=== PATIENT | female | born 1975 | race Caucasian/White ===

== ENCOUNTER 2021-12-18 11:34 | Observation (INO) | payer MEDICAID, SELFPAY ==
[2021-12-18] VITALS (8 sets, daily range): BP systolic 91–178; BP diastolic 53–95; PULSE 60–83; RESP 15–22; TEMP 36.2–36.7; O2SAT 92–100; BMI 30.7
--- NOTE | 2021-12-18 11:53 | XR_ITS ---
WS: [id number] Exam: XR chest 1V portable [id number] Date/Time of Exam: 12/18/2021 12:31 PM Reason For Exam: SOB No priors. Findings: The lungs are clear and fully expanded. Costophrenic angles are sharp. No infiltrates. Bronchovascula r relief appears normal. Cardiac silhouette is unremarkable. Bony elements are intact. XR/XR chest 1V portable [id number] IMPRESSION: Unremarkable chest radiograph.
[2021-12-18 12:46] LABS: Basophils # 0.1 10^3/uL (0.0-0.1); Basophils % 0.5 %; Eosinophils # 0.1 10^3/uL (0.0-0.8); Eosinophils % 1.3 %; Hematocrit 43.3 % (37.0-47.0); Hemoglobin 15.4 g/dL (11.5-15.3); Lymphocytes # 1.6 10^3/uL (0.8-4.8); Lymphocytes % 17.1 %; Mean Corpuscular HGB Conc 35.6 g/dL (30.0-36.0); Mean Corpuscular Hemoglobin 31.1 pg (28.0-34.0); Mean Corpuscular Volume 87.5 fl (81-99); Mean Platelet Volume 10.8 fL (7.4-10.4); Monocytes # 0.6 10^3/uL (0.2-0.9); Monocytes % 6.6 %; Neutrophils # 6.82 10^3/uL (1.8-7.7); Nucleated Red Blood Cells % 0 %; Platelet Count 214 10^3/cmm (130-400); Red Blood Count 4.95 10^6/uL (4.1-5.3); Red Cell Distribution Width 13.1 % (12.1-15.1); White Blood Count 9.2 10^3/uL (4.0-10.0)
--- NOTE | 2021-12-18 12:48 | CT_ITS ---
WS: [id number] CT ABDOMEN AND PELVIS NONCONTRAST HISTORY: diffuse ab pain, N/V TECHNIQUE: Imaging performed through the abdomen and pelvis. Coronal and sagittal reformats are submi tted. All CT scans at [facility] use at least one of these dose optimization techniques: auto mated exposure control; mA and/or kV adjustment per patient size (includes targeted exams where dose is matched to clinical indication); or iterative reconstruction. DLP: 1480.34 mGy.cm COMPARISON: None available. Lower thorax: Lung bases are clear. Visualized heart is normal. No hiatal hernia. Liver: Normal size liver. No mass or bile duct dilatation. Gallbladder: Normal gallbladder. Pancreas: Normal size and attenuation. Normal pancreatic duct. No pancreatitis or mass. Spleen: Normal. Adrenal glands: Normal. No mass. Right kidney: Normal size kidney with no mass or hydronephrosis. Left kidney: Normal size kidney with no mass or hydronephrosis. Aorta: Very minimal atherosclerotic plaque within the aorta. No aneurysm. No free fluid, intraperitoneal air or significant lymphadenopathy. GI tract: Normal appendix. No GI tract obstruction. There are a few scattered noninflamed sigmoid div erticula. Abdominal wall: Negative. No hernia. Pelvis: Uterus is tipped to the RIGHT of midline and very dense. The endometrium is not evident. Ther e is a small amount of free fluid in the cul-de-sac which is physiologic in amount. Neither ovary is well visualized. Osseous structures: Unremarkable. CT/CT abdomen pelvis wo con [id number] IMPRESSION: 1. No acute abdominal or pelvic abnormality is identified. 2. No evidence for acute pancreatitis. 3. A few minimally scattered sigmoid diverticula without acute diverticulitis. 4. Normal appendix. 5. Dense lobulated uterus and a small amount of physiologic free fluid in the pelvis. Consider follow-up transvaginal pelvic ultrasound on a nonurgent basis to evaluate for possible fibroids and the endometrium due to the increased dens ity. Patients symptoms do not appear to be related to the SENIOR ASSISTANT MANAGER system.
--- NOTE | 2021-12-18 12:49 | W.ED.ABDPA2 ---
Documented by User: MYRA Baker 12/22/21 12:49 HPI - Abdominal Pain General: Chief Complaint: Abdominal Pain Stated Complaint: abdominal pain/vomiting/nausea Time Seen by Provider: 12/18/21 12:18 Source: patient Mode of arrival: ambulatory Limitations: no limitations History of Present Illness: Patient is a 46-year-old female presents to ED today with complaint of diffuse abdominal pain, nausea, vomiting. Patient states symptoms been present over the past 5 to 6 days. She states she has a longstanding history of similar symptoms related to chronic pancreatitis. She states she was seen at [place] [facility] a few days ago had blood work and CT imaging as well as an ultrasound performed of her gallbladder which was normal. Patient states she used to be a heavy drinker but has not had a drink in over 5 months. She states she has not had a bowel movement in several days but admittedly has not been able to keep much food down. Patient is not running fevers. Denies urinary complaints. MD elicited complaint: abdominal pain Pertinent past history: other (pancreatitis) Onset (ago): day(s) Pain Consistency: constant Location: Diffuse Severity: severe Quality: cramping and sharp Radiation: none Migration to: no migration Relieving factors: nothing Associated Symptoms: Reports constipation, nausea and vomiting; Denies chills, diarrhea, dysuria, fever(s), hematochezia, hematuria, hematemesis and melena Review of Systems Const: Denies: fever(s), chills, body aches, fatigue or malaise Card: Denies: chest pain Resp: Denies: dyspnea GI: Reports: abdominal pain, nausea, vomiting and constipation; Denies: hematemesis, diarrhea, hematochezia or melena : Denies: flank pain, dysuria or hematuria Musc: Denies: neck pain, back pain, extremity pain or joint pain Skin/Breast: Denies: rash Neuro: Denies: headache(s), numbness in extremities, weakness in extremities, sensory changes or dizziness [facility] ED PFSH: Medical History Marijuana use Mood disorder PUD (peptic ulcer disease) Smoking addiction Surgical History H/O tubal ligation Family History Grandfather Glaucoma Diabetes Social History Smoking and tobacco status: never smoked Alcohol intake: never Substance/Drug Use: never Lives independently: Yes Household members: spouse Marital status: Current occupational status: employed Current occupation: Self-employed Physical Exam Const: COMMON NORMALS: patient oriented x3, no limitations and alert GENERAL APPEARANCE: cooperative and in distress (appears uncomfortable secondary to pain/nausea) NUTRITIONAL APPEARANCE: overweight ORIENTATION/CONSCIOUSNESS: Yes awake, Yes oriented to person, Yes oriented to place and Yes oriented to time HENMT: COMMON NORMALS: normocephalic and atraumatic HEAD & SCALP: normal to inspection, normocephalic and atraumatic Eye: COMMON NORMALS: no scleral icterus GENERAL EYE: appearance normal, both eyes and all related structures Chest: COMMONS NORMALS: normal inspection of the chest and normal palpation of entire chest wall Resp: COMMON NORMALS: normal respiratory effort and clear to auscultation bilaterally AUSCULTATION: clear to auscultation bilaterally Cardio: COMMON NORMALS: regular rate and regular rhythm RATE: regular rate RHYTHM: regular rhythm GI: COMMON NORMALS: no masses INSPECTION: Yes normal to inspection AUSCULTATION: Yes Hypoactive bowel sounds present PALPATION: Yes Tenderness to palpation present (GI) (diffusely) and Yes Guarding due to palpation present (GI) : COMMON NORMALS: Yes no CVA tenderness BLADDER/KIDNEY EXAM: Yes no CVA tenderness Back/Pelvis: COMMON NORMALS: no CVA tenderness Extremity: COMMON NORMALS: normal to inspection Neuro: SONIA COMA SCALE: document GCS findings [place] coma scale eye opening: Spontaneous [place] coma scale verbal response: Orientated [place] coma scale motor response: Obey commands Sonia coma scale total score: 15 COMMON NORMALS: patient oriented x3, moves all extremities, no focal motor deficits and no sensory deficits noted SENSORIUM/ORIENTATION: Yes alert, Yes oriented to person, Yes oriented to place and Yes oriented to time Skin: COMMON NORMALS: no rashes or lesions noted GENERAL SKIN EXAM: no rashes or lesions noted Course ED course: Re-assessment shows patient still nauseous/in pain. Will order more pain meds/nausea meds and reassess yet again. Case discussed with AUGUSTINE Amin who is coming on shift as well as Dr. Dupont. They will reassess patient and plan for disposition. Vital Signs: Vital signs: Vital Signs Temperature 99.0 F 12/19/21 14:29 Pulse Rate 84 12/19/21 14:29 Respiratory Rate 18 12/19/21 14:29 Blood Pressure 144/83 12/19/21 14:29 Pulse Oximetry 95 12/19/21 14:29 MDM - Abdominal Pain Lab Data : 12/19/21 04:28 12/19/21 04:28 Labs/Radiology: Radiology Impressions Chest X-Ray 12/18/21 11:53 IMPRESSION: Unremarkable chest radiograph. Abdomen/Pelvis CT 12/18/21 12:48 IMPRESSION: 1. No acute abdominal or pelvic abnormality is identified. 2. No evidence for acute pancreatitis. 3. A few minimally scattered sigmoid diverticula without acute diverticulitis. 4. Normal appendix. 5. Dense lobulated uterus and a small amount of physiologic free fluid in the pelvis. Consider follow-up transvaginal pelvic ultrasound on a nonurgent basis to evaluate for possible fibroids and the endometrium due to the increased density. Patients symptoms do not appear to be related to the FIELD APPLICATIONS SPECIALIST system. Pelvic/Transvag US 12/18/21 15:12 IMPRESSION: 1. No intrauterine gestation. 2. Posterior myometrial fibroid measures 2.4 x 1.8 x 1.7 cm. Laboratory Results WBC 9.2 10^3/uL (4.0-10.0) 12/18/21 12:15 RBC 4.95 10^6/uL (4.1-5.3) 12/18/21 12:15 Hgb 15.4 g/dL (11.5-15.3) H 12/18/21 12:15 Hct 43.3 % (37.0-47.0) 12/18/21 12:15 MCV 87.5 fl (81-99) 12/18/21 12:15 MCH 31.1 pg (28.0-34.0) 12/18/21 12:15 MCHC 35.6 g/dL (30.0-36.0) 12/18/21 12:15 RDW 13.1 % (12.1-15.1) 12/18/21 12:15 Plt Count 214 10^3/cmm (130-400) 12/18/21 12:15 MPV 10.8 fL (7.4-10.4) H 12/18/21 12:15 Neut % (Auto) 74.0 % 12/18/21 12:15 Lymph % (Auto) 17.1 % 12/18/21 12:15 [place] % (Auto) 6.6 % 12/18/21 12:15 Eos % (Auto) 1.3 % 12/18/21 12:15 Baso % (Auto) 0.5 % 12/18/21 12:15 Neut # (Auto) 6.82 10^3/uL (1.8-7.7) 12/18/21 12:15 Lymph # (Auto) 1.6 10^3/uL (0.8-4.8) 12/18/21 12:15 [place] # (Auto) 0.6 10^3/uL (0.2-0.9) 12/18/21 12:15 Eos # (Auto) 0.1 10^3/uL (0.0-0.8) 12/18/21 12:15 Baso # (Auto) 0.1 10^3/uL (0.0-0.1) 12/18/21 12:15 Nucleated RBC % (auto) 0 % 12/18/21 12:15 Nucleated RBCs # 0.0 /100WBC 12/18/21 12:15 Sodium 142 mmol/L (136-145) 12/18/21 12:15 Potassium 3.1 mmol/L (3.5-5.1) L 12/18/21 12:15 Chloride 105 mmol/L (98-107) 12/18/21 12:15 Carbon Dioxide 19 mmol/L (22-29) L 12/18/21 12:15 Anion Gap 21.1 (5-19) H 12/18/21 12:15 BUN 9 mg/dL (6-20) 12/18/21 12:15 Creatinine 0.8 mg/dL (0.5-0.9) 12/18/21 12:15 GFR Calculation 76.9 mL/min (90-130) L 12/18/21 12:15 Glucose 132 mg/dL (65-115) H 12/18/21 12:15 Calculated Osmolality 295 mOsm/kg (285-295) 12/18/21 12:15 Calcium 9.4 mg/dL (8.5-10.5) 12/18/21 12:15 Magnesium 1.9 mg/dL (1.7-2.3) 12/18/21 12:15 Total Bilirubin 0.5 mg/dL (0.15-1.2) 12/18/21 12:15 AST 19 U/L (0-32) 12/18/21 12:15 ALT 16 U/L (0-33) 12/18/21 12:15 Alkaline Phosphatase 89 IU/L (35-105) 12/18/21 12:15 Total Protein 6.8 g/dL (6.6-8.7) 12/18/21 12:15 Albumin 4.6 g/dL (3.5-5.2) 12/18/21 12:15 Globulin 2.2 g/dL (1.3-4.6) 12/18/21 12:15 Lipase 33 U/L (13-60) 12/18/21 12:15 HCG, Qual Positive (Negative) H 12/18/21 12:15 Ser , Semi-Qnt 4.51 mIU/mL 12/18/21 12:15 Ser , Semi-Qnt 4.52 mIU/mL 12/18/21 12:15 Urine Color Yellow (Yellow) 12/18/21 14:03 Urine Appearance Clear (CLEAR) 12/18/21 14:03 Urine pH 8 (5-7) H 12/18/21 14:03 Ur Specific [place] 1.015 (1.005-1.030) 12/18/21 14:03 Urine Protein Neg (Negative) 12/18/21 14:03 Urine Glucose (UA) Norm (Normal) 12/18/21 14:03 Urine Ketones 1+ (Negative) H 12/18/21 14:03 Urine Blood Neg (Negative) 12/18/21 14:03 Urine Nitrate Negative (Negative) 12/18/21 14:03 Urine Bilirubin Neg (Negative) 12/18/21 14:03 Prot Sulfosalicylic Acd Negative (Negative) 12/18/21 14:03 Urine Urobilinogen Norm mg/dL (Negative) 12/18/21 14:03 Ur Leukocyte Esterase Negative (Negative) 12/18/21 14:03 Discharge Plan Discharge Patient Disposition: Admitted As Inpatient Admit Provider: Sav Collins Clinical Impression: Hyperemesis, Abdominal pain, Intractable vomiting Condition: Stable Discharge Diet: Advance as tolerated and Full LIquid Discharge Activity: Increase activity as tolerated Coding Level of Care Code ED [place] Tier for Chg Fwd Exam Comprehensive Documented by User: Ace Dupont MD 12/20/21 19:39 HPI - Abdominal Pain General: Chief Complaint: Abdominal Pain Stated Complaint: abdominal pain/vomiting/nausea Time Seen by Provider: 12/18/21 12:18 PFSH ED PFSH: Medical History Marijuana use Mood disorder PUD (peptic ulcer disease) Smoking addiction Surgical History H/O tubal ligation Family History Grandfather Glaucoma Diabetes Social History Smoking and tobacco status: never smoked Alcohol intake: never Substance/Drug Use: never Lives independently: Yes Household members: spouse Marital status: Current occupational status: employed Current occupation: Self-employed Physical Exam Neuro: SONIA COMA SCALE: document GCS findings S[place] coma scale total score: 15 Course Vital Signs: Vital signs: Vital Signs Temperature 99.0 F 12/19/21 14:29 Pulse Rate 84 12/19/21 14:29 Respiratory Rate 18 12/19/21 14:29 Blood Pressure 144/83 12/19/21 14:29 Pulse Oximetry 95 12/19/21 14:29 MDM - Abdominal Pain Medical Decision Making 46-year-old female with history of prior pancreatitis, alcohol dependence presenting to the emergency room for acute onset of vomiting abdominal pain. Physical exam, patient has mild tenderness diffusely in the abdomen voluntary guarding. White count of 9.2. Patient is hemoconcentrated 15.4. Potassium 3.1. CT abdomen pelvis negative for any acute findings. hCG appears to positive qualitatively however, quantitative hCG within normal limit. Ultrasound of the pelvis negative for any acute findings. Patient received multiple antiemetics and IVF with mild improvement in symptoms. Patient still cannot tolerate p.o. Disposition: admission Dr. Dupont - Patient evaluation, diagnosis, and management was performed independently by Rita Lynch. I did not personally see the patient nor staff the patient with patient's provider. I did review the patient's note today and I believe this note is consistent. Lab Data : 12/19/21 04:28 12/19/21 04:28 Labs/Radiology: Radiology Impressions Chest X-Ray 12/18/21 11:53 IMPRESSION: Unremarkable chest radiograph. Abdomen/Pelvis CT 12/18/21 12:48 IMPRESSION: 1. No acute abdominal or pelvic abnormality is identified. 2. No evidence for acute pancreatitis. 3. A few minimally scattered sigmoid diverticula without acute diverticulitis. 4. Normal appendix. 5. Dense lobulated uterus and a small amount of physiologic free fluid in the pelvis. Consider follow-up transvaginal pelvic ultrasound on a nonurgent basis to evaluate for possible fibroids and the endometrium due to the increased density. Patients symptoms do not appear to be related to the FIELD APPLICATIONS SPECIALIST system. Pelvic/Transvag US 12/18/21 15:12
[2021-12-18 13:12] LABS: HCG, Serum Qual Positive (Negative)
[2021-12-18 13:13] LABS: Alanine Aminotransferase 16 U/L (0-33); Albumin Level 4.6 g/dL (3.5-5.2); Alkaline Phosphatase 89 IU/L (35-105); Anion Gap 21.1 (5-19); Aspartate Amino Transferase 19 U/L (0-32); Blood Urea Nitrogen 9 mg/dL (6-20); Calcium 9.4 mg/dL (8.5-10.5); Carbon Dioxide 19 mmol/L (22-29); Chloride 105 mmol/L (98-107); Globulin 2.2 g/dL (1.3-4.6); Glomerular Filtration Rate 76.9 mL/min (90-130); Glucose 132 mg/dL (65-115); Lipase 33 U/L (13-60); Osmolality Calculated 295 mOsm/kg (285-295); Potassium 3.1 mmol/L (3.5-5.1); Sodium 142 mmol/L (136-145); Total Bilirubin 0.5 mg/dL (0.15-1.2); Total Protein 6.8 g/dL (6.6-8.7)
[2021-12-18] MEDS: ondansetron 2 mg/ML SDV 2 mL 4 MG IVP ×3 (13:28→21:07)
[2021-12-18] MEDS: sodium chloride 0.9% 1,000 ML 999 ML IV ×2 (13:28→15:57)
[2021-12-18 13:36] LABS: HCG Quantitative 4.52 mIU/mL
[2021-12-18] MEDS: morphine 4 mg/mL SDV 1 mL IVP (13:44)
--- NOTE | 2021-12-18 14:11 | PC.NURSE ---
Patient did not take oral potassium, states she will once she is not feeling sick.
[2021-12-18 14:19] LABS: Magnesium 1.9 mg/dL (1.7-2.3)
[2021-12-18 14:20] LABS: Add Urine Microscopic? NO; Charge for UA Resulting for Rev
[2021-12-18 14:23] LABS: Bilirubin Urine Neg (Negative); Blood Urine Neg (Negative); Glucose Urine UA Norm (Normal); Ketones Urine 1+ (Negative); Leukocyte Esterase Urine Negative (Negative); Nitrate Urine Negative (Negative); Protein Urine Neg (Negative); Specific Gravity, Urine 1.015 (1.005-1.030); Sulfosalicylic Acid Urine Negative (Negative); Urine Appearance Clear (CLEAR); Urine Color Yellow (Yellow); Urobilinogen Urine Norm (Negative); pH Urine 8 (5-7)
--- NOTE | 2021-12-18 15:12 | US_ITS ---
WS: [id number] TRANSABDOMINAL PELVIC AND TRANSVAGINAL PELVIC ULTRASOUND HISTORY: COMPARISON: None available. Uterus: 7.3 x 4.4 x 4.8 cm. Hypoechoic area of shadowing in the posterior myometrium measures 2.4 x 1 .8 x 1.7 cm. Endometrium: 0.8 cm. Normal endometrium. Slightly distorted by the fibroid. Right ovary: 1.5 cm x 1.3 cm x 1.0 cm. Small caliber and unremarkable. Normal vascularity. Left ovary: 1.5 cm x 1.8 cm x 1.0 cm. Small caliber and unremarkable. Normal vascularity. No free fluid. US/US pelvic with transvaginal IMPRESSION: 1. No intrauterine gestation. 2. Posterior myometrial fibroid measures 2.4 x 1.8 x 1.7 cm.
[2021-12-18] MEDS: HYDROmorphone 1 mg/mL INJ 1 mL 0.5 MG IVP (15:18)
[2021-12-18] MEDS: metoclopramide 5 mg/mL SDV 2 mL 10 MG IVP (15:18)
[2021-12-18 15:39] LABS: HCG Quantitative 4.51 mIU/mL
--- NOTE | 2021-12-18 16:36 | ECG_ITS ---
[facility] Test Date: 2021-12-18 Pat Name: Janiya Kaur Department: Room: Gender: Female Biology Specialist: : 1975 Requested By: Ace Dupont Order Number: [id number] Aponte MD: Cass Mackey M.D. Measurements Intervals [place] Rate: 77 P: RI: QRS: 81 QRSD: 109 T: 79 QT: 430 QTc: 489 Interpretive Statements Wandering atrial pacemaker INCOMPLETE RIGHT BUNDLE BRANCH BLOCK [90+ ms QRS DURATION, TERMINAL R IN V1/V2, 40+ ms S IN I/aVL/V4/V5/V6] ABNORMAL RHYTHM ECG No previous ECG available for comparison Electronically Signed On 12-19-2021 11:48:57 CDT by Cass Mackey M.D. [id number]
--- NOTE | 2021-12-18 17:49 | P.HP_ITS ---
Providers/Chief Complaint Primary Care Provider: Zurdo Hernandez MD Chief Complaint: abdominal pain/vomiting/nausea History of Present Illness Pleasant 46-year-old lady with history of mood disorder, PUD, past alcohol overuse, but has not had any alcohol in the last 5 months, smoking addiction, presented to the emergency department due to 5 to 6 days of recurrent episodes of vomiting, currently to the point that she is unable to tolerate food or drink. With vague abdominal discomfort, with some pain and tenderness in epigastric and central abdomen. In ER she is afebrile, without leukocytosis, or other signs of sepsis. With mild hypokalemia, potassium 3.1, unremarkable urinalysis, unremarkable liver parameters. Lipase normal. Of note positive qualitative hCG, with quantitative hCG 4.52, repeated 4.51, normal. No intrauterine on pelvic/transvaginal ultrasound. Chest x- ray unremarkable. CT abdomen pelvis without acute abdominal or pelvic abnormality, no evidence of acute pancreatitis. Few minimal scattered sigmoid diverticuli without acute diverticulitis. Normal appendix. Dense lobulated uterus and a small amount of physiologic free fluid in the pelvis. Consider follow-up transvaginal pelvic ultrasound on nonemergent basis to evaluate for possible fibroids and endometrium due to the increased density. Pelvic/transvaginal ultrasound without intrauterine gestation. Posterior myometrial fibroid measuring 2.4 x 1.8 x 1.7 cm. In ER she received Zofran, fluid boluses, morphine, potassium, Reglan, Dilaudid. Reports history of PUD for which she takes pantoprazole. Does report also taking Aleve. Smoking marijuana. Review of Systems Const: Denies: fever(s), chills, body aches or malaise Eyes: Denies: change in vision, eye discomfort or eye redness ENMT: Denies: throat pain, oral sores or ear or mastoid pain Card: Denies: chest pain, edema, pre-syncope or dyspnea on exertion Resp: Denies: dyspnea, productive cough, change in phlegm color or hemoptysis GI: Reports: abdominal pain, nausea and vomiting; Denies: diarrhea, constipation, hematochezia or melena : Denies: flank pain, urinary frequency or hematuria Musc: Denies: back pain, joint swelling or joint redness Skin/Breast: Denies: rash or new lesions Neuro: Denies: headache(s), numbness in extremities, weakness in extremities, dizziness, confusion or seizure-like activity Endo: Denies: polyuria or polydipsia Ronnie/Lymph: Denies: easy bleeding or tender lymph nodes All/Imm: Denies: urticaria or tongue swelling Medications/Allergies Home Medications Medication Instructions Recorded Confirmed Last Taken Type citalopram 40 mg tablet 40 mg PO DAILY 12/18/21 12/18/21 12/17/21 History pantoprazole 40 mg tablet,delayed 40 mg PO DAILY 12/18/21 12/18/21 12/17/21 History release Allergies Allergy/AdvReac Type Severity Reaction Status Date / Time Penicillins Allergy Unknown ALGY-Hives Verified 12/18/21 17:59 PFSH Acute PFSH: Medical History Marijuana use Mood disorder PUD (peptic ulcer disease) Smoking addiction Surgical History H/O tubal ligation Family History Grandfather Glaucoma Diabetes Social History Smoking and tobacco status: never smoked Alcohol intake: never Substance/Drug Use: never Lives independently: Yes Household members: spouse Marital status: Current occupational status: employed Current occupation: Self-employed Vitals/I&O/Wt Last Vital Signs Temp 97.1 F L 12/18/21 11:59 Pulse 76 12/18/21 15:19 Resp 16 12/18/21 15:19 BP 178/95 12/18/21 15:19 Pulse Ox 100 12/18/21 15:19 Weight last 48 hrs Weight 76.204 kg Physical Exam Narrative: Sister at bedside Const: COMMON NORMALS: alert GENERAL APPEARANCE: cooperative ORIENTATION/CONSCIOUSNESS: Yes awake HENMT: COMMON NORMALS: normocephalic, EAC's normal, Normal external nose present and moist oral mucous membranes HEAD & SCALP: normocephalic NOSE: Normal external nose present EXTERNAL AUDITORY CANAL: EAC's normal Neck/C-Spine: COMMON NORMALS: no meningeal signs Chest: CHEST: Yes Symmetrical chest wall rise Resp: COMMON NORMALS: clear to auscultation bilaterally AUSCULTATION: clear to auscultation bilaterally Cardio: COMMON NORMALS: regular rate, regular rhythm and No murmurs present (Cardio) RATE: regular rate RHYTHM: regular rhythm GI: COMMON NORMALS: Normal to inspection, nondistended, normoactive bowel sounds present and Soft to palpation PALPATION: Yes Soft to palpation and Yes Tenderness to palpation present (GI) Details: other (Epigastrium) Extremity: COMMON NORMALS: no pedal edema Neuro: COMMON NORMALS: moves all extremities SENSORIUM/ORIENTATION: Yes alert MENINGEAL SIGNS: Yes no meningeal signs Psych: COMMON NORMALS: mental status grossly normal Skin: COMMON NORMALS: no wounds RASHES: no rashes Data : 12/18/21 12:15 12/18/21 12:15 A&P Assessment and plan (1) Intractable vomiting: Intractable nausea and vomiting to the point she cannot tolerate food or drink by mouth. Possible gastritis, possible PUD. History of known PUD. Possible NSAID induced gastritis as she takes Aleve. Additional consideration could be cannabinoid hyper emesis syndrome, although perhaps less likely given she also has epigastric abdominal pain. Lipase is normal, no sign of pancreatitis on CT. Has not had any alcohol in 5 months. Zofran as needed. Discussed with her to discontinue NSAIDs. Please PPI to twice daily, currently IV.Sucralfate. Will need to discuss consideration of discontinuation of cannabis use, especially in case of persistent or recurrent symptoms. IV hydration with LR. Status: Acute (2) PUD (peptic ulcer disease): Continue PPI. Discontinue NSAIDs. History of alcohol overuse, but has since stopped and has not drank any in 5 months. Status: Acute (3) Marijuana use: Consider possibility of cannabinoid hyperemesis syndrome. Status: Acute (4) Hypokalemia: Received replacement. Recheck. Status: Acute (5) Elevated serum hCG in female, not : Unclear cause of qualitative hCG elevation. This was followed up with quantitative which was normal, at 4.51, as well as pelvic/transvaginal ultrasound which showed no intrauterine . Discussed with her perhaps cannot rule out , but appears very unlikely. She reports she had had history of testing positive by beta-hCG before in the past and did not have at that time. Discussed with her to follow-up with primary provider. Primary provider may consider referral to gynecology. Status: Acute (6) Smoking addiction: Encourage cessation. Nicotine replacement. Status: Acute Plan Mood disorder PD History of alcohol overuse: Stopped any alcohol use 5 months ago. Attestations 2 Medical Necessity Statement*: Place in observation due to intractable nausea and vomiting unable to tolerate food or drink. Coding Level of Care Code Acute Clerical Warehouse Worker for Chg Fwd Diagnoses PUD (peptic ulcer disease) K27.9 Marijuana use F12.90 Hypokalemia E87.6 Elevated serum hCG in female, not E34.9 Smoking addiction F17.200 Intractable vomiting R11.10
--- NOTE | 2021-12-18 18:25 | PC.NURSE ---
Patient reports that her pain is much better, patient is in bed, observed to be resting with eyes open, and looks more comfortable than earlier.
[2021-12-18] MEDS: pantoprazole 40 mg SDV IVP (21:07)
[2021-12-18] MEDS: nicotine 14 mg Patch 1 PATCH TRANSDERMA (21:07)
[2021-12-18] MEDS: lactated ringers 1,000 ML 75 ML IV (21:09)
[2021-12-19 04:00] VITALS: BP 94/54; PULSE 68; RESP 17; TEMP 36.7; O2SAT 91
[2021-12-19 04:58] LABS: Basophils % 0.5 %; Eosinophils # 0.2 10^3/uL (0.0-0.8); Eosinophils % 2.1 %; Hematocrit 34.6 % (37.0-47.0); Hemoglobin 11.4 g/dL (11.5-15.3); Lymphocytes # 2.8 10^3/uL (0.8-4.8); Mean Corpuscular HGB Conc 32.9 g/dL (30.0-36.0); Mean Corpuscular Hemoglobin 31.1 pg (28.0-34.0); Mean Corpuscular Volume 94.3 fl (81-99); Mean Platelet Volume 10.8 fL (7.4-10.4); Monocytes # 0.5 10^3/uL (0.2-0.9); Monocytes % 6.6 %; Neutrophils # 4.41 10^3/uL (1.8-7.7); Neutrophils % 55.3 %; Nucleated Red Blood Cells % 0 %; Platelet Count 146 10^3/cmm (130-400); Red Blood Count 3.67 10^6/uL (4.1-5.3); Red Cell Distribution Width 13.7 % (12.1-15.1)
[2021-12-19 05:32] LABS: Alanine Aminotransferase 11 U/L (0-33); Albumin Level 3.4 g/dL (3.5-5.2); Alkaline Phosphatase 65 IU/L (35-105); Anion Gap 11.9 (5-19); Aspartate Amino Transferase 15 U/L (0-32); Blood Urea Nitrogen 6 mg/dL (6-20); Carbon Dioxide 24 mmol/L (22-29); Chloride 110 mmol/L (98-107); Glomerular Filtration Rate 76.9 mL/min (90-130); Glucose 103 mg/dL (65-115); Osmolality Calculated 294 mOsm/kg (285-295); Sodium 143 mmol/L (136-145); Thyroid Stimulating Hormone 1.77 uIU/mL (0.27-4.20); Total Bilirubin 0.3 mg/dL (0.15-1.2); Total Protein 5.4 g/dL (6.6-8.7)
[2021-12-19 05:37] LABS: Potassium 2.9 mmol/L (3.5-5.1)
[2021-12-19] MEDS: potassium chloride ER 20 mEq Tablet 40 MEQ PO ×2 (06:42→08:07)
[2021-12-19] MEDS: sodium chloride 0.9% 1,000 ML 100 ML IV (06:43)
[2021-12-19 08:00] VITALS: BP 118/75; PULSE 79; RESP 18; TEMP 37; O2SAT 93
[2021-12-19] MEDS: pantoprazole 40 mg SDV IVP (08:07)
[2021-12-19] MEDS: citalopram 20 mg Tablet 40 MG PO (08:07)
[2021-12-19] MEDS: lidocaine 1% 5 ML in potassium chloride premix 100 ML 25 ML IV (09:15)
--- NOTE | 2021-12-19 10:13 | PC.CHAP ---
Pastoral Care Encounter/Spiritual Assessment Type of Contact [] Declined wood room hand visit [] Patient/Family/Request visit [] Outpatient visit [] Follow-up visit [] Physician referral [] Code/Alert [x] Routine visit [] Staff referral [] Actively dying [] Patient sleeping [] Family support [] [] Out of room [] Palliative care [] [x] Receiving care in room [] Pre-surgical visit [] Trauma [] Long length of stay [] ICU visit [] Other: Relational/Emotional Strength [x] Patient feels connected with others/family/visitors/staff [] Distress [] Loneliness/isolation [] Abandonment Spirituality of Patient [x] Person of Myrtle [] Attends Muslim of their Myrtle [x] Believes in Prayer [] Reads Bible or Latter-Day materials [] There are Spiritual issues to be addressed Grinding Wheel Operator Interventions [x] Prayer [x] Active listening [x] Non-anxious presence [x] Spiritual/emotional support [] Crisis/trauma care [x] Spiritual counseling [] Bereavement support [] Provided bereavement packet [] Provided Bible/devotional materials [] Provided toy/stuffed animal, coloring book to patient or family member [] Provided Communion [] Anointing/Ermine [] Salvation [x] Completed spiritual assessment [] Other: Impact on Illness or Injury [] Angry [] Fearful [] Anxious [] Often cries [] Exhaustion [] Unable to work [] Unable to attend methodist [] Unable to walk/stand [] Unable to read [] Unable to drive [] Unable to eat/drink [] Unable to sleep [] Unable to be with family [] Patient intubated [] Other: Summary In pain not feeling good has a good attitude well get get to go home soon Time spent with patient 10 mins
--- NOTE | 2021-12-19 10:50 | P.DS_ITS ---
Discharge Providers Date of Admission: 12/18/21 16:48 Date of Discharge: December 19, 2021 Attending Provider at Admission: Sav Collins Attending Provider at Discharge: Sav Collins Primary Care Provider: Zurdo Hernandez MD Diagnoses at Discharge Discharge Diagnosis (1) Intractable vomiting: Status: Acute (2) PUD (peptic ulcer disease): Status: Acute (3) Marijuana use: Status: Acute (4) Hypokalemia: Status: Acute (5) Elevated serum hCG in female, not : Status: Acute (6) Smoking addiction: Status: Acute Reason for Visit Reason for Visit: abdominal pain/vomiting/nausea Hospital Course Hospital Course Pleasant 46-year-old lady with history of PAD, smoker, with history of alcohol abuse in the past, but has not had any alcohol in the last 5 months, with reported remote history of chronic pancreatitis, marijuana use, presented to the hospital with intractable nausea and vomiting over 5-6 days, to the point she was unable to tolerate food or drink, presented with dehydration, with hypokalemia, without signs of sepsis, liver parameters, lipase normal, CT abdomen pelvis ruled no acute abdominal pelvic abnormality, no evidence of pancreatitis, acute metabolic erythema diverticula, normal appendix, dense lobulated uterus and a small amount of physiologic free fluid in the pelvis. Possible fibroid. She also positive qualitative beta-hCG. She had additional follow-up testing in ER with quantitative. CD which came back at 4.51, normal, and pelvic/TV ultrasound without intrauterine gestation, with noted posterior myometrial fibroid measuring 2.4 x 1.8 x 1.7 cm. She received Zofran, Reglan, morphine, potassium replacement, fluid boluses. Required additional potassium and magnesium replacement. Continue IV hydration. Continued on nausea medicine. She reports that she does take Aleve at home, and was instructed to discontinue any NSAIDs patient with history of PAD. She reports that she has had EGD in the past which was about 3 years ago. She does states she has quit any alcohol, but does continue to smoke. She does feel better today. Protonix were escalated to twice daily, IV while in the hospital, and will continue twice daily at home. She is tolerating diet, and will advance gradually. Please discuss with her referral for endoscopic evaluation once she is out of acute illness given smoking history for reassessment and exclusion of malignancy as cause of her symptoms. Lower possibility of cannabinoid hyperemesis syndrome was discussed with her as well, although probably less likely given also epigastric discomfort and more symptoms of gastritis/PUD, but she is made aware in case especially recurrence of nausea after resumption of cannabinoid use to be cautious of this possibility. She does not yet feel ready to quit smoking, but please also revisit with her regarding this difficult task. Physical Exam Const: COMMON NORMALS: alert GENERAL APPEARANCE: cooperative ORIENTATION/CONSCIOUSNESS: Yes awake HENMT: COMMON NORMALS: normocephalic, EAC's normal, Normal external nose present and moist oral mucous membranes HEAD & SCALP: normocephalic NOSE: Normal external nose present EXTERNAL AUDITORY CANAL: EAC's normal Neck/C-Spine: COMMON NORMALS: no meningeal signs Chest: CHEST: Yes Symmetrical chest wall rise Resp: COMMON NORMALS: clear to auscultation bilaterally AUSCULTATION: clear to auscultation bilaterally Cardio: COMMON NORMALS: regular rate, regular rhythm and No murmurs present (Cardio) RATE: regular rate RHYTHM: regular rhythm GI: COMMON NORMALS: Normal to inspection, nondistended, normoactive bowel sounds present, Soft to palpation and non-tender PALPATION: Yes Soft to palpation Extremity: COMMON NORMALS: no pedal edema Neuro: COMMON NORMALS: moves all extremities SENSORIUM/ORIENTATION: Yes alert MENINGEAL SIGNS: Yes no meningeal signs Psych: COMMON NORMALS: mental status grossly normal Skin: COMMON NORMALS: no wounds RASHES: no rashes Discharge Data Studies Completed and Pending Completed Studies During Hospitalization Category Date Time Status CT abdomen pelvis con [id number] Urgent Cat Scan 12/18/21 12:48 Completed XR chest 1V portable [id number] Urgent Exams 12/18/21 11:53 Completed US pelvic with transvaginal Urgent Ultrasound 12/18/21 15:12 Completed Pending at discharge Category Date Time Status Complete Blood Count w/Auto AM LABS Lab 12/20/21 04:00 Ordered Complete Blood Count w/Auto AM LABS Lab 12/21/21 04:00 Ordered Comprehensive Metabolic Panel AM LABS Lab 12/20/21 04:00 Ordered Comprehensive Metabolic Panel AM LABS Lab 12/21/21 04:00 Ordered Radiology Impressions Chest X-Ray 12/18/21 11:53 IMPRESSION: Unremarkable chest radiograph. Abdomen/Pelvis CT 12/18/21 12:48 IMPRESSION: 1. No acute abdominal or pelvic abnormality is identified. 2. No evidence for acute pancreatitis. 3. A few minimally scattered sigmoid diverticula without acute diverticulitis. 4. Normal appendix. 5. Dense lobulated uterus and a small amount of physiologic free fluid in the pelvis. Consider follow-up transvaginal pelvic ultrasound on a nonurgent basis to evaluate for possible fibroids and the endometrium due to the increased density. Patients symptoms do not appear to be related to the HOUSING DEVELOPMENT SPECIALIST system. Pelvic/Transvag US 12/18/21 15:12 IMPRESSION: 1. No intrauterine gestation. 2. Posterior myometrial fibroid measures 2.4 x 1.8 x 1.7 cm. Laboratory Results WBC 8.0 10^3/uL (4.0-10.0) 12/19/21 04:28 RBC 3.67 10^6/uL (4.1-5.3) L 12/19/21 04:28 Hgb 11.4 g/dL (11.5-15.3) L 12/19/21 04:28 Hct 34.6 % (37.0-47.0) L 12/19/21 04:28 MCV 94.3 fl (81-99) D 12/19/21 04:28 MCH 31.1 pg (28.0-34.0) 12/19/21 04:28 MCHC 32.9 g/dL (30.0-36.0) D 12/19/21 04:28 RDW 13.7 % (12.1-15.1) 12/19/21 04:28 Plt Count 146 10^3/cmm (130-400) D 12/19/21 04:28 MPV 10.8 fL (7.4-10.4) H 12/19/21 04:28 Neut % (Auto) 55.3 % 12/19/21 04:28 Lymph % (Auto) 35.0 % 12/19/21 04:28 [place] % (Auto) 6.6 % 12/19/21 04:28 Eos % (Auto) 2.1 % 12/19/21 04:28 Baso % (Auto) 0.5 % 12/19/21 04:28 Neut # (Auto) 4.41 10^3/uL (1.8-7.7) 12/19/21 04:28 Lymph # (Auto) 2.8 10^3/uL (0.8-4.8) 12/19/21 04:28 [place] # (Auto) 0.5 10^3/uL (0.2-0.9) 12/19/21 04:28 Eos # (Auto) 0.2 10^3/uL (0.0-0.8) 12/19/21 04:28 Baso # (Auto) 0.0 10^3/uL (0.0-0.1) 12/19/21 04:28 Nucleated RBC % (auto) 0 % 12/19/21 04:28 Nucleated RBCs # 0.0 /100WBC 12/19/21 04:28 Sodium 143 mmol/L (136-145) 12/19/21 04:28 Potassium 2.9 mmol/L (3.5-5.1) L 12/19/21 04:28 Chloride 110 mmol/L (98-107) H 12/19/21 04:28 Carbon Dioxide 24 mmol/L (22-29) 12/19/21 04:28 Anion Gap 11.9 (5-19) 12/19/21 04:28 BUN 6 mg/dL (6-20) 12/19/21 04:28 Creatinine 0.8 mg/dL (0.5-0.9) 12/19/21 04:28 GFR Calculation 76.9 mL/min (90-130) L 12/19/21 04:28 Glucose 103 mg/dL (65-115) 12/19/21 04:28 Calculated Osmolality 294 mOsm/kg (285-295) 12/19/21 04:28 Calcium 8.0 mg/dL (8.5-10.5) L 12/19/21 04:28 Magnesium 1.9 mg/dL (1.7-2.3) 12/18/21 12:15 Total Bilirubin 0.3 mg/dL (0.15-1.2) 12/19/21 04:28 AST 15 U/L (0-32) 12/19/21 04:28 ALT 11 U/L (0-33) 12/19/21 04:28 Alkaline Phosphatase 65 IU/L (35-105) 12/19/21 04:28 Total Protein 5.4 g/dL (6.6-8.7) L D 12/19/21 04:28 Albumin 3.4 g/dL (3.5-5.2) L 12/19/21 04:28 Globulin 2.0 g/dL (1.3-4.6) 12/19/21 04:28 Lipase 33 U/L (13-60) 12/18/21 12:15 TSH 1.77 uIU/mL (0.27-4.20) 12/19/21 04:28 HCG, Qual Positive (Negative) H 12/18/21 12:15 Ser , Semi-Qnt 4.51 mIU/mL 12/18/21 12:15 Ser , Semi-Qnt 4.52 mIU/mL 12/18/21 12:15 Urine Color Yellow (Yellow) 12/18/21 14:03 Urine Appearance Clear (CLEAR) 12/18/21 14:03 Urine pH 8 (5-7) H 12/18/21 14:03 Ur Specific [place] 1.015 (1.005-1.030) 12/18/21 14:03 Urine Protein Neg (Negative) 12/18/21 14:03 Urine Glucose (UA) Norm (Normal) 12/18/21 14:03 Urine Ketones 1+ (Negative) H 12/18/21 14:03 Urine Blood Neg (Negative) 12/18/21 14:03 Urine Nitrate Negative (Negative) 12/18/21 14:03 Urine Bilirubin Neg (Negative) 12/18/21 14:03 Prot Sulfosalicylic Acd Negative (Negative) 12/18/21 14:03 Urine Urobilinogen Norm mg/dL (Negative) 12/18/21 14:03 Ur Leukocyte Esterase Negative (Negative) 12/18/21 14:03 Vitals Last Vital Signs Temp 98.6 F 12/19/21 08:00 Pulse 79 12/19/21 08:00 Resp 18 12/19/21 08:00 BP 118/75 12/19/21 08:00 Pulse Ox 93 12/19/21 08:00 Discharge Plan Discharge Patient Disposition: Home Condition: Stable Prescriptions: New ondansetron HCl 4 mg tablet 4 mg PO Q8H PRN (Reason: nausea and vomiting) 5 Days Qty: 15 0RF Continued citalopram 40 mg tablet 40 mg PO DAILY 0RF Changed pantoprazole 40 mg tablet,delayed release (DR/EC) 40 mg PO BID 42 Days Qty: 84 0RF Discharge Orders: Discharge Order (Routine); Ordered 12/19/21 Ordered By: Sav Collins Referrals: Zurdo Hernandez MD [Primary Care Provider] - 4-7 days Discharge Diet: Advance as tolerated and Full LIquid Discharge Activity: Increase activity as tolerated Patient Instructions: Ondansetron (By mouth), Pantoprazole (By mouth), Uterine Fibroids (GEN), Potassium Content of Foods List (GEN), Cigarette Smoking and Your Health (GEN) Activity Restrictions/Additional Instructions: Please increase pantoprazole dosing to twice daily 40 mg. Please avoid any NSAIDs including Aleve. Please discuss with your primary doctor consideration of reevaluation by endoscopy. Smoking puts you at risk of gastrointestinal cancer, including stomach cancer. Discuss with your primary transendoscopic aversion to exclude small chance of causes other than gastritis, ulcer that led to her symptoms. As discussed please be aware also of possibility of cannabinoid hyperemesis syndrome. In case of recurrence and/or persistence of nausea especially after resuming cannabinoid use, this could be due to the [facility], in which case please discontinue marijuana use or any other cannabinoid. Follow-up with your primary doctor regarding noted positive qualitative hCG test, although quantitative hCG normal, 4.51. Please discuss no intrauterine noted on the transvaginal ultrasound. Discuss noted posterior myometrial fibroid 2.4 x 1.8 x 1.7 cm. Increase foods rich in potassium due to noted mild low potassium level. Please have your primary doctor reassess your potassium level in office. Continue good work on abstaining from alcohol. Consider stopping smoking, discuss with your primary doctor however they may help you with this difficult task. Discharge Attestations Time Spent in Discharge Care*: greater than 30 min Quality Metrics Clinical Quality Measures [ No reported AMI, CVA or VTE this stay] Coding Level of Care Code Acute Chg FW DC note Diagnoses Intractable vomiting R11.10 PUD (peptic ulcer disease) K27.9 Marijuana use F12.90 Hypokalemia E87.6 Elevated serum hCG in female, not E34.9 Smoking addiction F17.200
[2021-12-19 12:00] VITALS: BP 144/83; PULSE 84; RESP 18; TEMP 37.2; O2SAT 95
[2021-12-19 14:29] VITALS: BP 144/83; PULSE 84; RESP 18; TEMP 37.2; O2SAT 95
== END 2021-12-19 14:30 | disposition home or self-care (01) ==
LOC: ER 16:10 → MEDSURG 18:19
PROVIDERS: Physician Assistant; Admitting Provider Internal Medicine; Emergency Provider Emergency Medicine; PCP Family Medicine; Visit Provider Internal Medicine
DX: R11.10 Vomiting, unspecified (principal); K27.9 Peptic ulcer, site unspecified, unspecified as acute or chronic, without hemorrhage or perforation; F12.90 Cannabis use, unspecified, uncomplicated; E87.6 Hypokalemia; E34.9 Endocrine disorder, unspecified; F17.200 Nicotine dependence, unspecified, uncomplicated
CPT/HCPCS: 36415; 71045; 74176; 76830; 76856; 80053; 81003; 83690; 83735; 84443; 84702; 84703; 85025; 93005; 96361; 96365; 96367; 96375; 96376; 99285; C9113; G0378; J1170; J2270; J2405; J2765; J3475; J3480; J7030

== ENCOUNTER 2022-03-15 14:45 | Emergency (ER) | payer MEDICAID, SELFPAY ==
[2022-03-15 15:03] VITALS: BP 138/98; PULSE 130; RESP 18; TEMP 36.8; O2SAT 96; BMI 31.1
--- NOTE | 2022-03-15 15:21 | ED_ITS ---
HPI - Abdominal Pain General: Chief Complaint: Abdominal Pain Stated Complaint: Abd pain, nausea Time Seen by Provider: 03/15/22 15:20 Source: patient Mode of arrival: ambulatory Limitations: no limitations History of Present Illness: 47-year-old female presents emergency room complaining of abdominal pain to the left lower quadrant abdominal pain with nausea and vomiting started about 4 days ago. She was seen yesterday at another hospital and had a CT was done she was told she is constipated she took some stool softener for. She continues to have vomiting and abdominal discomfort. Patient does admit to the use of medical marijuana and does not use any for the last several days she has had history of cyclical vomiting in the past. She has had intermittent carpopedal spasms. She denies any chest pain at this time. No fever sweats or chills no dysuria urgency or frequency. MD elicited complaint: abdominal pain Pertinent past history: constipation Onset (ago): day(s) (3) Pain Consistency: constant Location: Diffuse Severity: moderate Quality: cramping Exacerbating factors: nothing Relieving factors: nothing Associated Symptoms: Reports bloating, constipation, GI cramping, nausea and poor appetite; Denies anorexia, belching, change in bowel habits, change in stool character, chills, coffee ground emesis, diarrhea, dyspepsia, dysuria, excessive flatus, fever(s), heartburn, hematochezia, hematuria, hematemesis, fecal incontinence, loose stools, melena, syncope and vomiting Review of Systems Const: Denies: fever(s) or chills ENMT: Denies: throat pain, ear or mastoid pain, nasal discharge or nasal congestion Card: Denies: chest pain or syncope Resp: Denies: dyspnea, productive cough or non-productive cough GI: Reports: abdominal pain, nausea, constipation, bloating and GI cramping; Denies: vomiting, hematemesis, coffee ground emesis, heartburn, diarrhea, belching, excessive flatus, fecal incontinence, change in bowel habits, change in stool character, hematochezia or melena : Denies: dysuria or hematuria Skin/Breast: Denies: rash or pruritus PFSH ED PFSH: Medical History Hyperemesis Intractable vomiting Marijuana use Mood disorder PUD (peptic ulcer disease) Smoking addiction Surgical History H/O tubal ligation Family History Grandfather Glaucoma Diabetes Social History Smoking and tobacco status: never smoked Alcohol intake: never Lives independently: Yes Household members: spouse Marital status: Current occupational status: employed Current occupation: Self-employed Physical Exam Const: GENERAL APPEARANCE: cooperative and anxious (Hyperventilating) ORIENTATION/CONSCIOUSNESS: Yes awake, Yes oriented to person, Yes oriented to place and Yes oriented to time HENMT: COMMON NORMALS: normocephalic, atraumatic and hearing grossly normal bilaterally HEAD & SCALP: normocephalic and atraumatic Resp: COMMON NORMALS: No retractions, No use of accessory muscles and clear to auscultation bilaterally EFFORT & INSPECTION: Yes tachypneic AUSCULTATION: clear to auscultation bilaterally Cardio: COMMON NORMALS: regular rate, regular rhythm and No murmurs present (Cardio) RATE: regular rate RHYTHM: regular rhythm GI: COMMON NORMALS: Soft to palpation and No hepatosplenomegaly present AUSCULTATION: Yes normoactive bowel sounds PALPATION: Yes Soft to palpation, No Tenderness to palpation present (GI), No Guarding due to palpation present (GI) and Yes No hepatosplenomegaly present Extremity: COMMON NORMALS: normal to inspection, capillary refill normal, no clubbing, cyanosis or edema, no calf tenderness and no pedal edema Neuro: SENSORIUM/ORIENTATION: Yes oriented to person, Yes oriented to place and Yes oriented to time Skin: COMMON NORMALS: no rashes or lesions noted GENERAL SKIN EXAM: no rashes or lesions noted Course Vital Signs: Vital signs: Vital Signs Temperature 98.2 F 03/15/22 15:03 Pulse Rate 128 H 03/15/22 17:32 Respiratory Rate 21 H 03/15/22 17:32 Blood Pressure 135/100 03/15/22 17:32 Pulse Oximetry 97 03/15/22 17:32 Oxygen Delivery Me thod 03/15/22 17:32 MDM - Abdominal Pain Medical Decision Making CT report reviewed she did have some moderate stool in the proximal ascending colon in addition to this there was some mild thickening of the colon. Her exam for the most part is unremarkable at this point and once her hyperventilation improved she was somewhat better. She used some stool softener to try to leave the constipation reviewed with her she needs to use something stimulating. At this point would recommend milk of magnesia mag citrate has been patient recalls here recently and is generally not available. With the thickening in her colon with and the mild elevation of her white count recommend using some Cipro and metronidazole which was prescribed for her along with antiemetic. Remainder of her labs reviewed did show some mild hypokalemia the hyperventilation on her ABG. Liver functions are normal her abdominal exam on repeat did not show any peritoneal signs. Follow-up with her primary care return if she has any wors ening symptoms. Medical Records I reviewed the patient's medical records. Lab Data I reviewed the patient's lab results. : 03/15/22 16:15 03/15/22 15:47 Labs/Radiology: Radiology Impressions KUB X-Ray 03/15/22 15:32 IMPRESSION: No acute findings. Laboratory Results WBC 14.6 10^3/uL (4.0-10.0) H 03/15/22 16:15 Corrected WBC Cancelled 03/15/22 15:47 RBC 5.43 10^6/uL (4.1-5.3) H 03/15/22 16:15 Hgb 17.0 g/dL (11.5-15.3) H 03/15/22 16:15 Hct 48.6 % (37.0-47.0) H 03/15/22 16:15 MCV 89.5 fl (81-99) 03/15/22 16:15 MCH 31.3 pg (28.0-34.0) 03/15/22 16:15 MCHC 35.0 g/dL (30.0-36.0) 03/15/22 16:15 RDW 12.5 % (12.1-15.1) 03/15/22 16:15 Plt Count 240 10^3/cmm (130-400) 03/15/22 16:15 MPV 10.4 fL (7.4-10.4) 03/15/22 16:15 Gran % Cancelled 03/15/22 15:47 Neut % (Auto) 72.5 % 03/15/22 16:15 Lymph % (Auto) 19.3 % 03/15/22 16:15 [place] % (Auto) 7.2 % 03/15/22 16:15 Eos % (Auto) 0.2 % 03/15/22 16:15 Baso % (Auto) 0.4 % 03/15/22 16:15 Neut # (Auto) 10.59 10^3/uL (1.8-7.7) H 03/15/22 16:15 Lymph # (Auto) 2.8 10^3/uL (0.8-4.8) 03/15/22 16:15 [place] # (Auto) 1.1 10^3/uL (0.2-0.9) H 03/15/22 16:15 Eos # (Auto) 0.0 10^3/uL (0.0-0.8) 03/15/22 16:15 Baso # (Auto) 0.1 10^3/uL (0.0-0.1) 03/15/22 16:15 Absolute Gran (auto) Cancelled 03/15/22 15:47 Nucleated RBC % (auto) 0 % 03/15/22 16:15 Nucleated RBCs # 0.0 /100WBC 03/15/22 16:15 Specimen Type Arterial 03/15/22 15:32 Sample Site Radial, right 03/15/22 15:32 ABG pH 7.64 (7.35-7.45) H* 03/15/22 15:32 ABG pCO2 21.9 mmHg (35-45) L 03/15/22 15:32 ABG pO2 89.5 mmHg (80.0-100.0) 03/15/22 15:32 ABG HCO3 23.4 mmol/L (22-26) 03/15/22 15:32 ABG O2 Saturation 98.2 03/15/22 15:32 ABG Base Excess 4.8 mmol/L (-2.0-2.0) H 03/15/22 15:32 Low Test Pos 03/15/22 15:32 A-a O2 Gradient 4.0 mmHg (5-10) L 03/15/22 15:32 Hematocrit 52.1 % (37-47) H 03/15/22 15:32 Hgb O2 Saturation 97.3 % (95-100) 03/15/22 15:32 Carboxyhemoglobin 0.5 %THgb (0.4-20.1) 03/15/22 15:32 Methemoglobin 0.3 % (0.4-1.5) L 03/15/22 15:32 Total Hemoglobin 17.0 g/dL (12-16) H 03/15/22 15:32 Sodium 142.0 mmol/L (131-143) 03/15/22 15:32 Potassium 3.2 mmol/L (3.5-5.0) L 03/15/22 15:32 Glucose 121.0 mg/dL (70-115) H 03/15/22 15:32 Ionized Calcium 1.2 mmol/L (1.1-1.4) 03/15/22 15:32 O2 Delivery Device Room air 03/15/22 15:32 Tuckpointer Cleaner Caulker ID Hinja 03/15/22 15:32 Sodium 140 mmol/L (136-145) 03/15/22 15:47 Potassium 3.1 mmol/L (3.5-5.1) L 03/15/22 15:47 Chloride 98 mmol/L (98-107) 03/15/22 15:47 Carbon Dioxide 21 mmol/L (22-29) L 03/15/22 15:47 Anion Gap 24.1 (5-19) H 03/15/22 15:47 BUN 16 mg/dL (6-20) 03/15/22 15:47 Creatinine 0.9 mg/dL (0.5-0.9) 03/15/22 15:47 GFR Calculation 66.8 mL/min (90-130) L 03/15/22 15:47 Glucose 130 mg/dL (65-115) H 03/15/22 15:47 Calculated Osmolality 293 mOsm/kg (285-295) 03/15/22 15:47 Calcium 10.2 mg/dL (8.5-10.5) 03/15/22 15:47 Total Bilirubin 0.7 mg/dL (0.15-1.2) 03/15/22 15:47 AST 15 U/L (0-32) 03/15/22 15:47 ALT 16 U/L (0-33) 03/15/22 15:47 Alkaline Phosphatase 99 U/L (35-105) 03/15/22 15:47 Total Protein 7.7 g/dL (6.6-8.7) 03/15/22 15:47 Albumin 5.1 g/dL (3.5-5.2) 03/15/22 15:47 Globulin 2.6 g/dL (1.3-4.6) 03/15/22 15:47 Lipase 30 U/L (13-60) 03/15/22 15:47 HCG, Qual Negative (Negative) 03/15/22 15:47 Discharge Plan Discharge Patient Disposition: Home Clinical Impression: Colitis Condition: Stable Prescriptions: New Cipro 500 mg tablet 500 mg PO BID Qty: 14 0RF metronidazole 500 mg tablet 500 mg PO BID 7 Days Qty: 14 0RF promethazine 25 mg tablet 25 mg PO Q6H PRN (Reason: nausea and vomiting) Qty: 20 0RF No Action citalopram 40 mg tablet 40 mg PO DAILY pantoprazole 40 mg tablet,delayed release (DR/EC) 40 mg PO BID 42 Days Qty: 84 0RF Discharge Orders: Discharge ED (Routine); Ordered 03/15/22 Ordered By: George Carter Referrals: Zurdo Hernandez MD [Primary Care Provider] - Patient Instructions: Opioid Safety Activity Restrictions/Additional Instructions: Clear liquid diet for the next 24 to 48 hours Coding Level of Care Code ED Circus Laborer for Chg Fwd Exam Detailed
--- NOTE | 2022-03-15 15:32 | XRR_ITS ---
PROCEDURE INFORMATION: Exam: XR Abdomen Exam date and time: 03/15/2022 3:55 PM Age: 47 years old Clinical indication: Constipation TECHNIQUE: Imaging protocol: Radiologic exam of the abdomen. Views: Frontal supine view of the abdomen. 1 View. COMPARISON: CT abdomen pelvis con [id number] 12/18/2021 1:55 PM FINDINGS: Gastrointestinal tract: The gas pattern is nonspecific no evidence of bowel obstruction. Negative for colonic fecal stasis Bones/joints: Unremarkable. XR/XR KUB portable [id number] IMPRESSION: No acute findings.
[2022-03-15] MEDS: promethazine 25 mg/mL SDV 1 mL IM (15:51)
[2022-03-15 16:04] LABS: HCG, Serum Qual Negative (Negative)
[2022-03-15 16:10] LABS: ABG PCO2 21.9 mmHg (35-45); Arterial Blood Gas Hematocrit 52.1 % (37-47); Base Excess ABG 4.8 mmol/L (-2.0-2.0); Blood Gas Allen Test Pos; Blood Gas Sample Site Radial, right; Blood Gas Sample Type Arterial; Carboxyhemoglobin 0.5 %THgb (0.4-20.1); HCO3 ABG 23.4 mmol/L (22-26); HGB O2 Sat 97.3 % (95-100); Ionized Calcium Level - ABG 1.2 mmol/L (1.1-1.4); Methemoglobin 0.3 % (0.4-1.5); Oxygen Device ROOM AIR; Oxygen Saturation ABG 98.2; PO2 ABG 89.5 mmHg (80.0-100.0); Potassium Level - ABG 3.2 mmol/L (3.5-5.0)
[2022-03-15 16:12] LABS: ABG PH Result 7.64 (7.35-7.45)
[2022-03-15 16:14] LABS: Alanine Aminotransferase 16 U/L (0-33); Albumin Level 5.1 g/dL (3.5-5.2); Alkaline Phosphatase 99 U/L (35-105); Anion Gap 24.1 (5-19); Aspartate Amino Transferase 15 U/L (0-32); Blood Urea Nitrogen 16 mg/dL (6-20); Calcium 10.2 mg/dL (8.5-10.5); Carbon Dioxide 21 mmol/L (22-29); Chloride 98 mmol/L (98-107); Creatinine Clr Calc Pharmacy 73.4988; Globulin 2.6 g/dL (1.3-4.6); Glomerular Filtration Rate 66.8 mL/min (90-130); Glucose 130 mg/dL (65-115); Lipase 30 U/L (13-60); Osmolality Calculated 293 mOsm/kg (285-295); Potassium 3.1 mmol/L (3.5-5.1); Sodium 140 mmol/L (136-145); Total Bilirubin 0.7 mg/dL (0.15-1.2); Total Protein 7.7 g/dL (6.6-8.7)
[2022-03-15 16:22] LABS: Basophils # 0.1 10^3/uL (0.0-0.1); Basophils % 0.4 %; Eosinophils % 0.2 %; Hematocrit 48.6 % (37.0-47.0); Lymphocytes # 2.8 10^3/uL (0.8-4.8); Lymphocytes % 19.3 %; Mean Corpuscular Hemoglobin 31.3 pg (28.0-34.0); Mean Corpuscular Volume 89.5 fl (81-99); Mean Platelet Volume 10.4 fL (7.4-10.4); Monocytes # 1.1 10^3/uL (0.2-0.9); Monocytes % 7.2 %; Neutrophils # 10.59 10^3/uL (1.8-7.7); Neutrophils % 72.5 %; Nucleated Red Blood Cells % 0 %; Platelet Count 240 10^3/cmm (130-400); Red Blood Count 5.43 10^6/uL (4.1-5.3); Red Cell Distribution Width 12.5 % (12.1-15.1); White Blood Count 14.6 10^3/uL (4.0-10.0)
[2022-03-15] MEDS: LORazepam 2 mg Tablet PO (17:31)
[2022-03-15 17:32] VITALS: BP 135/100; PULSE 128; RESP 21; O2SAT 97
[2022-03-15] MEDS: sodium chloride 0.9% 1,000 ML 999 ML IV (17:44)
[2022-03-15] MEDS: haloperidol inj 5 mg/mL INJ 1 mL 2.5 MG IVP (18:36)
== END 2022-03-15 19:43 | disposition home or self-care (01) ==
PROVIDERS: Physician Assistant; Emergency Provider Family Medicine; PCP Family Medicine
DX: K52.9 Noninfective gastroenteritis and colitis, unspecified (principal)
CPT/HCPCS: 74018; 80051; 80053; 82330; 82805; 83690; 84703; 85025; 96372; 96374; 99284; J1630; J2550; J7030

== ENCOUNTER 2022-10-16 12:41 | Emergency (ER) | payer MEDICAID, SELFPAY ==
[2022-10-16 13:01] VITALS: BP 153/104; PULSE 106; RESP 17; TEMP 36.6; O2SAT 95; BMI 30.2
[2022-10-16 13:11] VITALS: BP 148/98; PULSE 108; RESP 18; O2SAT 98
--- NOTE | 2022-10-16 13:33 | ED_ITS ---
HPI - Nausea/Vomiting/Diarrhea General: Chief complaint: Nausea/Vomiting/Diarrhea Stated complaint: n/v/weak Time Seen by Provider: 10/16/22 13:21 History of Present Illness: Patient is a 47-year-old female comes to the ED with nausea and vomiting. Symptoms started approximately 3 days ago. She has had trouble keeping any food or fluids down. Symptoms worsen with any kind of movement or changing positions. Patient states that she has had these episodes of nausea and vomiting before and they occur about every 5 to 6 months. Patient states she is a chronic daily marijuana user. Denies any fevers, abdominal pain, dysuria, hematuria, diarrhea. Past surgical history of tubal ligation. Associated nausea: Yes Associated symtoms: Reports nausea; Denies change in vision, chest pain, dysuria, fatigue, headache(s) or palpitations Review of Systems Const: Denies: fever(s), chills or fatigue Eyes: Denies: change in vision or eye discomfort ENMT: Denies: throat pain, odynophagia, nasal discharge or nasal congestion Card: Denies: chest pain, palpitations, edema, swelling of feet/ankles, dyspnea on exertion or orthopnea Resp: Denies: dyspnea, productive cough or non-productive cough GI: Reports: nausea and vomiting; Denies: abdominal pain, diarrhea, constipation or hematochezia : Denies: flank pain, dysuria or hematuria Musc: Denies: neck pain, back pain or extremity swelling Skin/Breast: Denies: rash or new lesions Neuro: Denies: headache(s), numbness in extremities or weakness in extremities PFSH ED PFSH: Medical History Hyperemesis Intractable vomiting Marijuana use Mood disorder PUD (peptic ulcer disease) Smoking addiction Surgical History H/O tubal ligation Family History Grandfather Glaucoma Diabetes Social History Smoking and tobacco status: never smoked Alcohol intake: never Lives independently: Yes Household members: spouse Marital status: Current occupational status: employed Current occupation: Self-employed Physical Exam Const: COMMON NORMALS: patient oriented x3 and alert GENERAL APPEARANCE: cooperative OTHER: Patient started actively vomiting when I had her sit up in bed so I could listen to her lungs. HENMT: COMMON NORMALS: normocephalic HEAD & SCALP: normocephalic MOUTH: Normal oral and palatal mucosa present THROAT: posterior oropharynx normal and uvula midline Neck/C-Spine: COMMON NORMALS: supple GENERAL: Yes normal visual inspection Resp: COMMON NORMALS: normal respiratory effort, No retractions, No use of accessory muscles and clear to auscultation bilaterally AUSCULTATION: clear to auscultation bilaterally Cardio: COMMON NORMALS: regular rate, regular rhythm, S1 normal heart sound present, S2 normal heart sound present, No gallops present (Cardio), No clicks present (Cardio), No murmurs present (Cardio) and Peripheral pulses 2+ throughout RATE: regular rate RHYTHM: regular rhythm HEART SOUNDS: S1 normal heart sound present and S2 normal heart sound present PERIPHERAL PULSES: Peripheral pulses 2+ throughout GI: COMMON NORMALS: Normal to inspection, nondistended, normoactive bowel sounds present, Soft to palpation, non-tender and no masses PALPATION: Yes Soft to palpation : COMMON NORMALS: Yes no CVA tenderness BLADDER/KIDNEY EXAM: Yes no CVA tenderness Back/Pelvis: COMMON NORMALS: no CVA tenderness Extremity: COMMON NORMALS: normal to inspection Neuro: COMMON NORMALS: patient oriented x3 SENSORIUM/ORIENTATION: Yes alert GAIT: Yes Normal gait present Skin: GENERAL SKIN EXAM: dry skin Course Vital Signs: Vital signs: Vital Signs Temperature 97.8 F 10/16/22 13:01 Pulse Rate 102 H 10/16/22 16:23 Respiratory Rate 14 10/16/22 16:23 Blood Pressure 142/79 10/16/22 16:23 Pulse Oximetry 92 10/16/22 16:23 Oxygen Delivery Me thod 10/16/22 15:00 MDM - Nausea/Vomiting/Diarrhea Medical Decision Making Patient is a 47-year-old female comes to the ED with nausea and vomiting. Symptoms started approximately 3 days ago. She has had trouble keeping any food or fluids down. Symptoms worsen with any kind of movement or changing positions. Patient states that she has had these episodes of nausea and vomiting before and they occur about every 5 to 6 months. Patient states she is a chronic daily marijuana user. Denies any fevers, abdominal pain, dysuria, hematuria, diarrhea. Past surgical history of tubal ligation. Vitals are stable. Patient has no abdominal tenderness. Rest of the exam is benign. White blood cell count of 15.1 but the rest of labs are unremarkable. Patient was given 2 L of IV fluids and multiple medications to help with nausea and her symptoms improved. She is able to tolerate p.o. fluids. Patient diagnosed with cyclic vomiting syndrome could potentially be due to marijuana use. She was stable for discharge home and sent home with a prescription for promethazine. Told to follow-up with her PCP in the next week for reevaluation. Return to ED precautions given. Patient understood agree with plan. Lab Data I reviewed the patient's lab results. 10/16/22 13:46 10/16/22 13:46 Laboratory Results WBC 15.1 10^3/uL (4.0-10.0) H 10/16/22 13:46 RBC 5.34 10^6/uL (4.1-5.3) H 10/16/22 13:46 Hgb 16.7 g/dL (11.5-15.3) H 10/16/22 13:46 Hct 47.3 % (37.0-47.0) H 10/16/22 13:46 MCV 88.6 fl (81-99) 10/16/22 13:46 MCH 31.3 pg (28.0-34.0) 10/16/22 13:46 MCHC 35.3 g/dL (30.0-36.0) 10/16/22 13:46 RDW 13.2 % (12.1-15.1) 10/16/22 13:46 Plt Count 242 10^3/cmm (130-400) 10/16/22 13:46 MPV 11.0 fL (7.4-10.4) H 10/16/22 13:46 Neut % (Auto) 78.6 % 10/16/22 13:46 Lymph % (Auto) 13.8 % 10/16/22 13:46 [place] % (Auto) 6.7 % 10/16/22 13:46 Eos % (Auto) 0.1 % 10/16/22 13:46 Baso % (Auto) 0.2 % 10/16/22 13:46 Neut # (Auto) 11.88 10^3/uL (1.8-7.7) H 10/16/22 13:46 Lymph # (Auto) 2.1 10^3/uL (0.8-4.8) 10/16/22 13:46 [place] # (Auto) 1.0 10^3/uL (0.2-0.9) H 10/16/22 13:46 Eos # (Auto) 0.0 10^3/uL (0.0-0.8) 10/16/22 13:46 Baso # (Auto) 0.0 10^3/uL (0.0-0.1) 10/16/22 13:46 Nucleated RBC % (auto) 0 % 10/16/22 13:46 Nucleated RBCs # 0.0 /100WBC 10/16/22 13:46 Sodium 142 mmol/L (136-145) 10/16/22 13:46 Potassium 3.3 mmol/L (3.5-5.1) L 10/16/22 13:46 Chloride 103 mmol/L (98-107) 10/16/22 13:46 Carbon Dioxide 21 mmol/L (22-29) L 10/16/22 13:46 Anion Gap 21.3 (5-19) H 10/16/22 13:46 BUN 15 mg/dL (6-20) 10/16/22 13:46 Creatinine 0.8 mg/dL (0.5-0.9) 10/16/22 13:46 GFR Calculation 76.6 mL/min (90-130) L 10/16/22 13:46 Glucose 146 mg/dL (65-115) H 10/16/22 13:46 Calculated Osmolality 297 mOsm/kg (285-295) H 10/16/22 13:46 Calcium 9.8 mg/dL (8.5-10.5) 10/16/22 13:46 Total Bilirubin 0.6 mg/dL (0.15-1.2) 10/16/22 13:46 AST 16 U/L (0-32) 10/16/22 13:46 ALT 13 U/L (0-33) 10/16/22 13:46 Alkaline Phosphatase 99 U/L (35-105) 10/16/22 13:46 Total Protein 7.7 g/dL (6.6-8.7) 10/16/22 13:46 Albumin 4.5 g/dL (3.5-5.2) 10/16/22 13:46 Globulin 3.2 g/dL (1.3-4.6) 10/16/22 13:46 Discharge Plan Discharge Patient Disposition: Home Clinical Impression: Cyclic vomiting syndrome Condition: Stable Prescriptions: New promethazine 25 mg tablet 25 mg PO Q6H PRN (Reason: nausea and vomiting) Qty: 20 0RF No Action citalopram 40 mg tablet 40 mg PO QAM pantoprazole 40 mg tablet,delayed release (DR/EC) 40 mg PO BID 42 Days Qty: 84 0RF Discharge Orders: Discharge ED (Routine); Ordered 10/16/22 Ordered By: Chiki Lyle Referrals: Jethro Hopper [Primary Care Provider] - Discharge Diet: Advance as tolerated and Clear Liquid Discharge Activity: Increase activity as tolerated Activity Restrictions/Additional Instructions: Follow-up with medical provider as directed. Take medications as prescribed. Return to the ER or your medical provider if condition worsens. Please read and understand discharge instructions. Thank you for choosing [facility] for your healthcare needs today. Please realize this is an emergency room and that we are providing you with a medical screening exam and this may not be complete and all inclusive of all the testing and or work up that you may need to determine your ailment or severity of your illness. It is very important that you follow up as instructed or that you return to the Emergency Department should you have concerns or if your condition changes or worsens in any way. Coding Level of Care Code ED Marine Geologist for Arun Ruano
[2022-10-16] MEDS: haloperidol inj 5 mg/mL INJ 1 mL IVP (13:54)
[2022-10-16] MEDS: metoclopramide 5 mg/mL SDV 2 mL 10 MG IVP (13:54)
[2022-10-16] MEDS: sodium chloride 0.9% 1,000 ML 999 ML IV ×2 (13:55→14:57)
[2022-10-16 14:00] VITALS: PULSE 81; RESP 18; O2SAT 93
[2022-10-16 14:09] LABS: Basophils % 0.2 %; Eosinophils % 0.1 %; Hematocrit 47.3 % (37.0-47.0); Hemoglobin 16.7 g/dL (11.5-15.3); Lymphocytes # 2.1 10^3/uL (0.8-4.8); Lymphocytes % 13.8 %; Mean Corpuscular HGB Conc 35.3 g/dL (30.0-36.0); Mean Corpuscular Hemoglobin 31.3 pg (28.0-34.0); Mean Corpuscular Volume 88.6 fl (81-99); Monocytes % 6.7 %; Neutrophils # 11.88 10^3/uL (1.8-7.7); Neutrophils % 78.6 %; Nucleated Red Blood Cells % 0 %; Platelet Count 242 10^3/cmm (130-400); Red Blood Count 5.34 10^6/uL (4.1-5.3); Red Cell Distribution Width 13.2 % (12.1-15.1); White Blood Count 15.1 10^3/uL (4.0-10.0)
[2022-10-16 14:27] LABS: Alanine Aminotransferase 13 U/L (0-33); Albumin Level 4.5 g/dL (3.5-5.2); Alkaline Phosphatase 99 U/L (35-105); Anion Gap 21.3 (5-19); Aspartate Amino Transferase 16 U/L (0-32); Blood Urea Nitrogen 15 mg/dL (6-20); Calcium 9.8 mg/dL (8.5-10.5); Carbon Dioxide 21 mmol/L (22-29); Chloride 103 mmol/L (98-107); Globulin 3.2 g/dL (1.3-4.6); Glomerular Filtration Rate 76.6 mL/min (90-130); Glucose 146 mg/dL (65-115); Osmolality Calculated 297 mOsm/kg (285-295); Potassium 3.3 mmol/L (3.5-5.1); Sodium 142 mmol/L (136-145); Total Bilirubin 0.6 mg/dL (0.15-1.2); Total Protein 7.7 g/dL (6.6-8.7)
[2022-10-16] MEDS: ondansetron 2 mg/ML SDV 2 mL 4 MG IVP (14:57)
[2022-10-16] MEDS: LORazepam 2 mg/mL INJ 1 mL IVP (14:57)
[2022-10-16 15:00] VITALS: PULSE 108; RESP 18; O2SAT 92
[2022-10-16 16:23] VITALS: BP 142/79; PULSE 102; RESP 14; O2SAT 92
== END 2022-10-16 16:25 | disposition home or self-care (01) ==
PROVIDERS: Emergency Provider Physician Assistant; PCP Family Medicine
DX: R11.15 Cyclical vomiting syndrome unrelated to migraine (principal)
CPT/HCPCS: 80053; 85025; 96374; 96375; 99284; J1630; J2060; J2405; J2765; J7030

== ENCOUNTER 2022-10-20 11:07 | Emergency (ER) | payer MEDICAID, SELFPAY ==
--- NOTE | 2022-10-20 11:12 | XRR_ITS ---
PROCEDURE INFORMATION: Exam: XR Chest Exam date and time: 10/20/2022 11:30 AM Age: 47 years old Clinical indication: Cough and dyspnea; Additional info: Dyspnea/cough TECHNIQUE: Imaging protocol: Radiologic exam of the chest. Views: 1 view. COMPARISON: CR XR chest 1V portable [id number] 12/18/2021 12:38 PM FINDINGS: Lungs: Unremarkable. No consolidation. Pleural spaces: Unremarkable. No pleural effusion. No pneumothorax. Heart/Mediastinum: Unremarkable. No cardiomegaly. Bones/joints: Unremarkable. XR/XR chest 1V portable [id number] IMPRESSION: No acute findings.
[2022-10-20 11:15] VITALS: BP 188/100; PULSE 69; RESP 18; TEMP 36.6; O2SAT 100
[2022-10-20 11:22] VITALS: BP 188/100; PULSE 70; RESP 22; O2SAT 100
--- NOTE | 2022-10-20 11:25 | ECG_ITS ---
[facility] Test Date: 2022-10-20 Pat Name: Janiya Kaur Department: Room: Gender: Female Data Management Associate: : 1975 Requested By: George Davis Order Number: [id number] Aponte MD: Rajeev Viramontes M.D. Measurements Intervals [place] Rate: 64 P: 54 VA: 116 QRS: 73 QRSD: 95 T: 76 QT: 425 QTc: 442 Interpretive Statements SINUS RHYTHM WITH SHORT VA INTERVAL Compared to ECG 12/18/2021 12:36:44 Short VA interval now present Wandering atrial pacemaker no longer present Atrial-paced complex(es) or rhythm no longer present Incomplete right bundle-branch block no longer present Electronically Signed On 10-20-2022 11:28:32 CDT by Rajeev Viramontes M.D. [email or web address] Biotechclaiborne county medical centerVisionary Pharmaceuticalskettering health washington township.[id number]
[2022-10-20] MEDS: sodium chloride 0.9% 1,000 ML 999 ML IV ×2 (11:28→13:07)
--- NOTE | 2022-10-20 11:30 | W.ED.ABDPA2 ---
HPI - Abdominal Pain General: Chief Complaint: Abdominal Pain Stated Complaint: N/V Time Seen by Provider: 10/20/22 11:11 Source: patient Mode of arrival: ambulatory Limitations: no limitations History of Present Illness: 47-year-old female presents to the emergency room with complaints of nausea vomiting began last night. She was seen 3 days ago for the same symptoms. It intermittently been bothering her since she has a history of regular marijuana use which was what was thought to be her symptoms were last time she not had any fever sweats chills no hematochezia melena hematemesis There is no dysuria urgency or frequency no sharp flank pain diffuse abdominal cramping with persistent vomiting. Onset (ago): day(s) (1) Pain Consistency: constant Location: Epigastric Severity: moderate Quality: cramping Radiation: none Exacerbating factors: nothing Relieving factors: nothing Associated Symptoms: Reports GI cramping and vomiting; Denies anorexia, belching, bloating, change in bowel habits, change in stool character, chills, coffee ground emesis, constipation, diarrhea, dyspepsia, dysuria, excessive flatus, fever(s), heartburn, hematochezia, hematuria, hematemesis, fecal incontinence, loose stools, melena, nausea, poor appetite and syncope Review of Systems Const: Denies: fever(s) or chills Card: Denies: syncope GI: Reports: vomiting and GI cramping; Denies: nausea, hematemesis, coffee ground emesis, heartburn, diarrhea, constipation, bloating, belching, excessive flatus, fecal incontinence, change in bowel habits, change in stool character, hematochezia or melena : Denies: dysuria or hematuria PFSH ED PFSH: Medical History Hyperemesis Intractable vomiting Marijuana use Mood disorder PUD (peptic ulcer disease) Smoking addiction Surgical History H/O tubal ligation Family History Grandfather Glaucoma Diabetes Social History Smoking and tobacco status: never smoked Alcohol intake: never Lives independently: Yes Household members: spouse Marital status: Current occupational status: employed Current occupation: Self-employed Physical Exam Const: GENERAL APPEARANCE: cooperative and comfortable ORIENTATION/CONSCIOUSNESS: Yes awake, Yes oriented to person, Yes oriented to place and Yes oriented to time HENMT: COMMON NORMALS: normocephalic, atraumatic and hearing grossly normal bilaterally HEAD & SCALP: normocephalic and atraumatic Resp: COMMON NORMALS: normal respiratory effort, No retractions, No use of accessory muscles and clear to auscultation bilaterally AUSCULTATION: clear to auscultation bilaterally Cardio: COMMON NORMALS: regular rate, regular rhythm and No murmurs present (Cardio) RATE: regular rate RHYTHM: regular rhythm GI: COMMON NORMALS: Soft to palpation and No hepatosplenomegaly present AUSCULTATION: Yes normoactive bowel sounds PALPATION: Yes Soft to palpation, No Tenderness to palpation present (GI), No Guarding due to palpation present (GI) and Yes No hepatosplenomegaly present Extremity: COMMON NORMALS: normal to inspection, capillary refill normal, no clubbing, cyanosis or edema, no calf tenderness and no pedal edema Neuro: SENSORIUM/ORIENTATION: Yes oriented to person, Yes oriented to place and Yes oriented to time Skin: COMMON NORMALS: no rashes or lesions noted GENERAL SKIN EXAM: no rashes or lesions noted Course Vital Signs: Vital signs: Vital Signs Temperature 97.8 F 10/20/22 11:15 Pulse Rate 70 10/20/22 11:22 Respiratory Rate 22 H 10/20/22 11:22 Blood Pressure 182/106 10/20/22 13:25 Pulse Oximetry 99 10/20/22 13:25 Oxygen Delivery Me thod 10/20/22 13:25 MDM - Abdominal Pain Medical Decision Making Labs unremarkable. Patient's symptoms resolved after Ativan and Haldol. Her abdominal exam on repeat exam is benign. White count is normal. Suspect this is related to the regular use of marijuana. Discussed with patient. Encouraged her to abstain gave olanzapine and Ativan to use as needed Medical Records I reviewed the patient's medical records. Lab Data I reviewed the patient's lab results. 10/20/22 11:20 10/20/22 11:20 Labs/Radiology: Radiology Impressions Chest X-Ray 10/20/22 11:12 IMPRESSION: No acute findings. Laboratory Results WBC 8.9 10^3/uL (4.0-10.0) 10/20/22 11:20 RBC 4.96 10^6/uL (4.1-5.3) 10/20/22 11:20 Hgb 15.1 g/dL (11.5-15.3) 10/20/22 11:20 Hct 45.4 % (37.0-47.0) 10/20/22 11:20 MCV 91.5 fl (81-99) 10/20/22 11:20 MCH 30.4 pg (28.0-34.0) 10/20/22 11:20 MCHC 33.3 g/dL (30.0-36.0) 10/20/22 11:20 RDW 13.1 % (12.1-15.1) 10/20/22 11:20 Plt Count 197 10^3/cmm (130-400) 10/20/22 11:20 MPV 11.3 fL (7.4-10.4) H 10/20/22 11:20 Neut % (Auto) 77.6 % 10/20/22 11:20 Lymph % (Auto) 16.1 % 10/20/22 11:20 [place] % (Auto) 4.8 % 10/20/22 11:20 Eos % (Auto) 0.6 % 10/20/22 11:20 Baso % (Auto) 0.6 % 10/20/22 11:20 Neut # (Auto) 6.91 10^3/uL (1.8-7.7) 10/20/22 11:20 Lymph # (Auto) 1.4 10^3/uL (0.8-4.8) 10/20/22 11:20 [place] # (Auto) 0.4 10^3/uL (0.2-0.9) 10/20/22 11:20 Eos # (Auto) 0.1 10^3/uL (0.0-0.8) 10/20/22 11:20 Baso # (Auto) 0.1 10^3/uL (0.0-0.1) 10/20/22 11:20 Nucleated RBC % (auto) 0 % 10/20/22 11:20 Nucleated RBCs # 0.0 /100WBC 10/20/22 11:20 Sodium 142 mmol/L (136-145) 10/20/22 12:10 Potassium 3.4 mmol/L (3.5-5.1) L 10/20/22 12:10 Chloride 109 mmol/L (98-107) H 10/20/22 12:10 Carbon Dioxide 22 mmol/L (22-29) 10/20/22 12:10 Anion Gap 14.4 (5-19) 10/20/22 12:10 BUN 11 mg/dL (6-20) 10/20/22 12:10 Creatinine 0.8 mg/dL (0.5-0.9) 10/20/22 12:10 GFR Calculation 76.6 mL/min (90-130) L 10/20/22 12:10 Glucose 131 mg/dL (65-115) H 10/20/22 12:10 Calculated Osmolality 295 mOsm/kg (285-295) 10/20/22 12:10 Calcium 8.4 mg/dL (8.5-10.5) L 10/20/22 12:10 Total Bilirubin 0.3 mg/dL (0.15-1.2) 10/20/22 12:10 AST 13 U/L (0-32) 10/20/22 12:10 ALT 13 U/L (0-33) 10/20/22 12:10 Alkaline Phosphatase 70 U/L (35-105) 10/20/22 12:10 Total Protein 5.9 g/dL (6.6-8.7) L 10/20/22 12:10 Albumin 3.6 g/dL (3.5-5.2) 10/20/22 12:10 Globulin 2.3 g/dL (1.3-4.6) 10/20/22 12:10 Lipase 27 U/L (13-60) 10/20/22 12:10 Urine Color Light yellow (Yellow) 10/20/22 11:35 Urine Appearance Hazy (CLEAR) A 10/20/22 11:35 Urine pH 9 (5-7) H 10/20/22 11:35 Ur Specific [place] 1.020 (1.005-1.030) 10/20/22 11:35 Urine Protein Neg (Negative) 10/20/22 11:35 Urine Glucose (UA) Norm (Normal) 10/20/22 11:35 Urine Ketones 1+ (Negative) H 10/20/22 11:35 Urine Blood Neg (Negative) 10/20/22 11:35 Urine Nitrate Negative (Negative) 10/20/22 11:35 Urine Bilirubin Neg (Negative) 10/20/22 11:35 Prot Sulfosalicylic Acd Negative (Negative) 10/20/22 11:35 Urine Urobilinogen Norm mg/dL (Negative) 10/20/22 11:35 Ur Leukocyte Esterase Negative (Negative) 10/20/22 11:35 Urine RBC None /hpf (0-2) 10/20/22 11:35 Urine WBC 0-4 /hpf (0-5) H 10/20/22 11:35 Ur Squamous Epith Cells 0-4 /hpf (0-5) H 10/20/22 11:35 Amorphous Sediment 2+ /hpf 10/20/22 11:35 Urine Bacteria 1+ /hpf (NONE) H 10/20/22 11:35 Discharge Plan Discharge Patient Disposition: Home Clinical Impression: Cannabinoid hyperemesis syndrome Condition: Stable Prescriptions: New olanzapine 10 mg tablet,disintegrating 10 mg PO Q6H PRN (Reason: nausea and vomiting) 8 Days Qty: 14 0RF Ativan 2 mg tablet 2 mg PO Q6H Qty: 10 0RF No Action citalopram 40 mg tablet 40 mg PO QAM pantoprazole 40 mg tablet,delayed release (DR/EC) 40 mg PO BID 42 Days Qty: 84 0RF promethazine 25 mg tablet 25 mg PO Q6H PRN (Reason: nausea and vomiting) Qty: 20 0RF Discharge Orders: Discharge ED (Routine); Ordered 10/20/22 Ordered By: George Carter Referrals: Jethro Hopper [Primary Care Provider] - Discharge Diet: Clear Liquid Discharge Activity: Increase activity as tolerated Patient Instructions: Opioid Safety, Pain Management Activity Restrictions/Additional Instructions: You are seen today for persistent nausea vomiting abdominal discomfort. Your abdominal exam was unremarkable your white count is normal. The remainder of your other labs are normal and your symptoms improved with medications and fluids. Recommended that you avoid use of marijuana products. You can use lorazepam and olanzapine 1 each every 6 hours as needed for persistent nausea and vomiting. Do not use with promethazine. Coding Level of Care Code ED Carbon Sequestration Plant Operator for Arun Ruano
[2022-10-20 11:40] LABS: Basophils # 0.1 10^3/uL (0.0-0.1); Basophils % 0.6 %; Eosinophils # 0.1 10^3/uL (0.0-0.8); Eosinophils % 0.6 %; Hematocrit 45.4 % (37.0-47.0); Hemoglobin 15.1 g/dL (11.5-15.3); Lymphocytes # 1.4 10^3/uL (0.8-4.8); Lymphocytes % 16.1 %; Mean Corpuscular HGB Conc 33.3 g/dL (30.0-36.0); Mean Corpuscular Hemoglobin 30.4 pg (28.0-34.0); Mean Corpuscular Volume 91.5 fl (81-99); Mean Platelet Volume 11.3 fL (7.4-10.4); Monocytes # 0.4 10^3/uL (0.2-0.9); Monocytes % 4.8 %; Neutrophils # 6.91 10^3/uL (1.8-7.7); Neutrophils % 77.6 %; Nucleated Red Blood Cells % 0 %; Platelet Count 197 10^3/cmm (130-400); Red Blood Count 4.96 10^6/uL (4.1-5.3); Red Cell Distribution Width 13.1 % (12.1-15.1); White Blood Count 8.9 10^3/uL (4.0-10.0)
[2022-10-20] MEDS: LORazepam 2 mg/mL INJ 1 mL IVP (11:42)
[2022-10-20] MEDS: haloperidol inj 5 mg/mL INJ 1 mL 2.5 MG IM (11:44)
[2022-10-20 12:22] LABS: Urine Appearance Hazy (CLEAR); Urine Color Light yellow (Yellow); pH Urine 9 (5-7)
[2022-10-20 12:23] LABS: Add Urine Microscopic? YES; Bilirubin Urine Neg (Negative); Blood Urine Neg (Negative); Glucose Urine UA Norm (Normal); Ketones Urine 1+ (Negative); Leukocyte Esterase Urine Negative (Negative); Nitrate Urine Negative (Negative); Protein Urine Neg (Negative); Sulfosalicylic Acid Urine Negative (Negative); Urobilinogen Urine Norm (Negative)
[2022-10-20 12:24] LABS: Add Urine Culture? No; Amorphous Sediment Urine 2+ /hpf; Bacteria Urine 1+ /hpf; Squamous Epithelial Cell Urine 0-4 /hpf (0-5); WBC Urine 0-4 /hpf (0-5)
[2022-10-20 12:44] LABS: Alanine Aminotransferase 13 U/L (0-33); Albumin Level 3.6 g/dL (3.5-5.2); Alkaline Phosphatase 70 U/L (35-105); Anion Gap 14.4 (5-19); Aspartate Amino Transferase 13 U/L (0-32); Blood Urea Nitrogen 11 mg/dL (6-20); Calcium 8.4 mg/dL (8.5-10.5); Carbon Dioxide 22 mmol/L (22-29); Chloride 109 mmol/L (98-107); Globulin 2.3 g/dL (1.3-4.6); Glomerular Filtration Rate 76.6 mL/min (90-130); Glucose 131 mg/dL (65-115); Lipase 27 U/L (13-60); Osmolality Calculated 295 mOsm/kg (285-295); Potassium 3.4 mmol/L (3.5-5.1); Sodium 142 mmol/L (136-145); Total Bilirubin 0.3 mg/dL (0.15-1.2); Total Protein 5.9 g/dL (6.6-8.7)
[2022-10-20 13:25] VITALS: BP 182/106; O2SAT 99
[2022-10-20] MEDS: hyDRALAzine 20 mg/mL INJ 1 mL IVP (13:25)
[2022-10-20] MEDS: amlodipine 5 mg Tablet PO (13:25)
== END 2022-10-20 15:09 | disposition home or self-care (01) ==
PROVIDERS: Emergency Provider Family Medicine; PCP Family Medicine
DX: R11.2 Nausea with vomiting, unspecified (principal); F12.90 Cannabis use, unspecified, uncomplicated
CPT/HCPCS: 71045; 80053; 81001; 83690; 85025; 93005; 96361; 96374; 96375; 99285; J0360; J1630; J2060; J7030

== ENCOUNTER → 2024-05-03 11:46 | Outpatient (BNVA) | payer MEDICAID, SELFPAY | PROVIDERS: PCP Family Medicine; Referring Provider Family Medicine; Visit Provider Psychiatry & Neurology Neurology | DX: R25.1 Tremor, unspecified (principal); R56.9 Unspecified convulsions; R55 Syncope and collapse | CPT/HCPCS: 36415; 82306; 82607; 82746; 83090; 83735; 83921; 84439; 84443; 84481 ==

== ENCOUNTER 2024-06-13 12:45 | Outpatient (CLI) | payer MEDICAID, SELFPAY ==
--- NOTE | 2024-06-13 13:00 | MR_ITS ---
WS: [id number] MRI BRAIN WITH AND WITHOUT CONTRAST HISTORY: R56.9 - Unspecified convulsions COMPARISON: None available. TECHNIQUE: Multiplanar imaging performed through the brain with MultiHance 15 ml's IV. No acute infarcts are seen. Haque-white matter differentiation is well preserved. No susceptibility artifacts or prior lacunar infarcts. Ventricles and extra-axial spaces are normal. Clivus and pituitary gland are normal. Visualized posterior fossa and brainstem are also normal. Postcontrast images are negative for masses or vascular malformations. Dural venous sinuses are normal. Paranasal sinuses: Well aerated with no significant disease. Mastoid air cells: Normal. Calvarium and scalp: Normal. MR/MR head wo/w con [id number] IMPRESSION: 1. No prior infarct. 2. No hemosiderin or prior hemorrhage. 3. No enhancing masses. 4. Unremarkable MRI brain.
--- NOTE | 2024-06-13 13:45 | MR_ITS ---
WS: [id number] MRA CAROTID ARTERIES HISTORY: R56.9 - Unspecified convulsions COMPARISON: None available. TECHNIQUE: MRA is performed with intravenous gadolinium. MIP and source images are reviewed. Right: Cervical carotid artery arises normally from the innominate. Normal common, internal and exter nal carotid arteries. No high-grade stenosis. Left: Cervical carotid artery arises normally from the arch. Common, internal and external carotid ar teries are intact with no significant stenosis. Subclavian Arteries: Normal. Vertebral Arteries: Normal. MR/MR angio neck w con* [id number] IMPRESSION: Normal MR angiogram carotid arteries.
[2024-06-13] MEDS: gadobenate dimeglumine 20 mL vial 15 ML IV (14:23)
--- NOTE | 2024-06-13 14:30 | MR_ITS ---
WS: [id number] MRA ANGIOGRAPHY [place] HISTORY: R56.9 - Unspecified convulsions COMPARISON: None available. TECHNIQUE: 3-D MR angiography is performed of the [place]. All images are reviewed including source images. Distal vertebral and basilar arteries are intact with no significant stenosis or plaque. Posterior ce rebral arteries are normal course and caliber. Posterior communicating arteries are both patent. LEFT posterior communicating artery is hypoplastic. Intracranial portion of the internal carotid arteries are normal course and caliber. No significant a therosclerosis, stenosis or aneurysm identified. Middle and anterior cerebral arteries are both paten t with no significant disease. Anterior communicating artery is also normal. MR/MR angio head wo con [id number] IMPRESSION: Normal MRA [place].
== END 2024-06-13 12:46 | disposition home or self-care (01) ==
LOC: RAD 12:46
PROVIDERS: PCP Family Medicine; Visit Provider Psychiatry & Neurology Neurology
DX: R56.9 Unspecified convulsions (principal); I67.83 Posterior reversible encephalopathy syndrome
CPT/HCPCS: 70544; 70548; 70553

== ENCOUNTER → 2024-10-04 13:37 | Outpatient (BNVA) | payer MEDICAID, SELFPAY | PROVIDERS: PCP Family Medicine; Visit Provider Internal Medicine Cardiovascular Disease | DX: R07.9 Chest pain, unspecified (principal) | CPT/HCPCS: 93005 ==

== ENCOUNTER 2024-11-04 13:13 | Outpatient (CLI) | payer MEDICAID, SELFPAY ==
--- NOTE | 2024-11-04 13:30 | USCV_ITS ---
Janiya Kaur Age: 49 Gender: F : 1975 Exam Date: 11/04/2024 13:54 Ordering Phys: Beronica Perera MD ([email or web address]) Technologist: Johnson Alonso [place] [facility] [place]: syncope BP: 116 / 68 HR: 67 Rhythm: Sinus Technical Quality: Adequate MEASUREMENTS (Male / Female) Normal Values 2D ECHO LV Diastolic Diameter PLAX 3.8 cm 4.2 - 5.9 / 3.9 - 5.3 cm IVS Diastolic Thickness 1.1 cm 0.6 - 1.0 / 0.6 - 0.9 cm IVS Systolic Thickness 1.2 cm LVPW Diastolic Thickness 2.0 cm 0.6 - 1.0 / 0.6 - 0.9 cm LVPW Systolic Thickness 2.2 cm LVOT Diameter 2.0 cm LV Ejection Fraction 2D Teich 55.1 % LV Ejection Fraction MOD 4C 51.9 % LV Ejection Fraction MOD 2C 53.5 % LV Ejection Fraction 2C AL 54.5 % LA Diameter 3.9 cm RA Systolic Volume 4C AL 25.2 ml RA Systolic Volume 4C MOD 25.6 ml LA Sys Volume AL 37.6 cm cubed LA Sys Volume Index AL 20.9 cm cubed/m squared Aorta at Sinotubular Diameter 2.0 cm IVC Diameter 1.7 cm M-MODE LA Ao Ratio MM 1.1 AV Cusp Separation MM 1.8 cm DOPPLER AV Peak Velocity 127.0 cm/s LVOT Peak Velocity 81.0 cm/s AV Area Cont Eq vti 2.0 cm squared AV Area Cont Eq pk 2.0 cm squared MV Peak Velocity 90.0 cm/s MV Area PHT 4.1 cm squared Mitral E to A Ratio 1.1 TV Peak Velocity 245.0 cm/s TR Peak Velocity 293.0 cm/s TR Peak Gradient 34.3 mmHg TR Mean Velocity 226.0 cm/s TR Mean Gradient 21.7 mmHg TR Velocity Time Integral 68.6 cm PV Peak Velocity 97.0 cm/s RV Ejection Time 0.3 s FINDINGS Left Ventricle Normal left ventricular size, systolic function and wall thickness, with no regional wall motion abnormalities. Left ventricular ejection fraction is estimated at 60 %.Grade II/IV diastolic dysfunction, moderately elevated filling pressures. Right Ventricle The right ventricle is normal in size and function. Right Atrium The right atrium is normal in size. Left Atrium The left atrium is normal in size. Mitral Valve Mildly thickened mitral valve. Mitral annular calcification. No mitral valve stenosis. Mild mitral valve regurgitation. Aortic Valve Structurally normal aortic valve without significant sclerosis or stenosis. There is no aortic regurgitation. Tricuspid Valve Structurally normal tricuspid valve without significant stenosis or regurgitation. Pulmonary artery systolic pressure is normal. Pulmonic Valve Structurally normal pulmonic valve without significant stenosis. There is no pulmonic regurgitation. Pericardium Normal pericardium without effusion. Aorta Normal ascending aorta dimension. IVC The inferior vena cava appears normal. CONCLUSIONS Normal left ventricular size, systolic function and wall thickness, with no regional wall motion abnormalities. Left ventricular ejection fraction is estimated at 60 %.Grade II/IV diastolic dysfunction, moderately elevated filling pressures. There is no pericardial effusion. No significant valve abnormalities. Right atrial pressure is around 5 mm of mercury. Beronica Perera MD (Electronically Signed) Final Date: 17 November 2024 19:41 S
== END 2024-11-04 13:14 | disposition home or self-care (01) ==
PROVIDERS: PCP Family Medicine; Visit Provider Internal Medicine Cardiovascular Disease
DX: R55 Syncope and collapse (principal); R06.02 Shortness of breath; R07.9 Chest pain, unspecified; R93.1 Abnormal findings on diagnostic imaging of heart and coronary circulation; I34.81 Nonrheumatic mitral (valve) annulus calcification; I34.0 Nonrheumatic mitral (valve) insufficiency
CPT/HCPCS: 93306

== ENCOUNTER 2025-05-25 09:16 | Outpatient (CLI) | payer MEDICAID, SELFPAY ==
[2025-05-25 10:13] VITALS: BMI 29.2
--- NOTE | 2025-05-25 10:13 | NMCV_ITS ---
NM solomon perf SPECT r/s* [id number] Janiya Kaur Age: 50 Gender: F : 1975 Exam Date: 05/25/2025 10:15 Ordering Phys: Beronica Perera MD ([email or web address]) Technologist: SARAHI Almodovar Exam Location: [facility] Indications: cp STRESS TEST Please see separate stress test report in [facility] for full findings IMAGE PROTOCOL Rest/Stress 1 Exercise Day Radiopharmaceutical Dose (mCi) Administration Site Administered by Rest: Tc-99m 10.7 IV SARAHI Almodovar Sestamibi Stress:Tc-99m 32.9 IV SARAHI Almodovar Sestamibi Rest: 25-May-2025 60 Discovery 630 Stress: 25-May-2025 30 Discovery 630 Radiopharmaceutical was injected at 85 % maximum heart rate. Images obtained in supine and prone position. SPECT RESULTS Technical Quality: Good Raw Data Analysis: Normal Image Corrections: No attenuation or motion correction applied Summed Stress Score: 0 Summed Rest Score: 0 Summed Difference Score: 0 PERFUSION FINDINGS SPECT images demonstrate homogeneous tracer distribution throughout the myocardium. FUNCTIONAL RESULTS (calculated via Gated SPECT) Stress Image LV EF (%): 70 Stress EDV (mL):82 TID: 0.9 Stress ESV (mL):25 FUNCTIONAL FINDINGS: There is normal left ventricular systolic function. IMPRESSIONS Myocardial perfusion imaging is normal. There is normal left ventricular systolic function, ef 70%. Kwabena Rios MD, FACC (Electronically Signed) Final Date: 25 May 2025 12:22 S
--- NOTE | 2025-05-25 10:13 | ECG_ITS ---
[employer] [facility] Test Date: 2025-05-25 Pat Name: Janiya Kaur Department: Room: Gender: Female [employer]station Operator: : 1975 Requested By: Beronica Perera Order Number: [id number] Aponte MD: Kwabena Rios M.D. Interpretive Statements Procedure: The patient's resting blood pressure was 111/69 mmHg with a heart rate of 71 bpm. the patient exercised for a total of 7 minutes and 14 seconds on the Adam protocol reaching I maximum heart rate of 154 bpm which is 91% of the patient's maximal predicted heart rate. Patient achieved 10.2 METS. The peak blood pressure was 155/75. The patient denied any chest pain during the procedure. At the end of recovery the patient's blood pressure was 117/63 mmHg with a heart rate of 89 bpm. The baseline EKG showed normal sinus rhythm with mild T wave inversion in lead aVL. The patient developed an ectopic atrial tachycardia in recovery with a change in P wave morphology. The rhythm returned to normal sinus rhythm 5 minutes into recovery. There were no ischemic changes on EKG. Findings: CONCLUSION: 1. Exercise capacity was average for age. 2. Heart rate response was appropriate. 3. Blood pressure response was appropriate. 4. No symptoms of angina during exercise. 5. Electrocardiogram portion of the stress test without evidence of ischemia. 6. Nuclear scan will be documented separately. 7. Temporary ectopic atrial tachycardia in recovery lasting approximately 3 minutes. Electronically Signed On 05-25-2025 12:40:09 CDT by Kwabena Rios M.D. [email or web address]
[2025-05-25 11:44] VITALS: BP 117/63; PULSE 89
== END 2025-05-25 09:17 | disposition home or self-care (01) ==
PROVIDERS: PCP Family Medicine; Visit Provider Internal Medicine Cardiovascular Disease
DX: R07.9 Chest pain, unspecified (principal)
CPT/HCPCS: 36415; 78452; 93017; A9500